=== PATIENT | female | born 1955 | race African-American/Black ===

== ENCOUNTER 2017-02-08 14:54 | Inpatient (IN) | payer MEDICARE, MEDICAID ==
[~2017-02-08] VITALS: Ht 170.2 cm; Wt 118.5 kg
[~2017-02-08 14:54] MED LIST: AMLO5TAB2 PO; ASPI-482 PO; ATOR40TA59 PO; CARV12.52 PO; CLOP75TA PO; FURO-68 PO; IBUP-1060 PO; INSU100C4 SQ; INSU100I13 SQ; INSU100V SQ; INSU100V3 SQ; LISI10TA2 PO; NITR0.4T SL; OXYC-323 PO; POTA10TA5 PO
--- NOTE | 2017-02-08 15:40 | RAD ---
Portable chest, 02/08/2017: History: Hypercalcemia Comparison is made to a study from 08/23/2015. The heart is at the upper limits of normal in size. A coronary artery stent is projected over the left side of the heart. The pulmonary vascularity is normal. No pulmonary infiltrates are seen. There is no evidence of pleural fluid. Moderate spurring is present in the spine. IMPRESSION: No acute cardiopulmonary abnormality is detected.
[2017-02-08 15:44] LABS: BASO # 0.1 x10^3/uL (0.0-0.2); BASO % 1 % (0-3); EOS % 6 % (0-3); HEMATOCRIT 29.2 % (36.0-47.0); HEMOGLOBIN 9.7 g/dL (12.0-15.5); LYMPH % 29 % (24-48); MEAN CORPUSCULAR HEMOGLOBIN 27 pg (25-35); MEAN CORPUSCULAR HGB CONC 33 g/dL (31-37); MEAN CORPUSCULAR VOLUME 81 fL (79-100); MONO % 10 % (0-9); NEUT % 53 % (31-73); PLATELET COUNT 556 x10^3/uL (140-400); RED BLOOD COUNT 3.59 x10^6/uL (3.50-5.40); RED CELL DISTRIBUTION WIDTH 15.5 % (11.5-14.5); WHITE BLOOD COUNT 6.9 x10^3/uL (4.0-11.0)
[2017-02-08] MEDS ORDERED: SODIUM BICARB ADULT 8.4% 50 MEQ/50 ML DISP.SYRIN. IV ONE (15:45)
[2017-02-08] MEDS ORDERED: INSULIN REGULAR 100 UNIT/ML 10ML VIAL. IV ONE (15:45)
[2017-02-08] MEDS ORDERED: DEXTROSE 50% 25 GM / 50ML DISP.SYRIN. IV ONE (15:45)
[2017-02-08] MEDS ORDERED: SODIUM POLYSTYRENE SULFONATE 15 GM/60 ML ORAL.SUSP. PO ONE (15:45)
[2017-02-08] MEDS ORDERED: CALCIUM GLUCONATE 1,000 MG/10 ML VIAL. IV ONE (15:45)
[2017-02-08] MEDS ORDERED: ACETAMINOPHEN 325 MG TABLET. PO PRN ×2 (16:00→16:45)
[2017-02-08] MEDS ORDERED: ONDANSETRON PF 4 MG/2 ML VIAL. IV PRN ×2 (16:00→16:45)
--- NOTE | 2017-02-08 16:00 | PHYS DOC ---
Past Medical History Past Medical History: Diabetes-Type II Past Surgical History: Hysterectomy Alcohol Use: None Drug Use: None Adult General Chief Complaint Chief Complaint: ABNORMAL LABS HPI HPI Patient is a 61 year old female with history significant for diabetes, hypertension, chronic renal insufficiency who presents here today with an incidental finding of hypokalemia that was noted by her primary care physician. Patient reports that she had a potassium level that was elevated to 6.4. Dr. Berumen repeated the potassium level today and was 6.5. I had a discussion with Dr. Berumen upon the patient's arrival and reports that her creatinine during her last blood draw was 2.0 and today her creatinine is 2.3. Reports that her GFR usually runs about 30. Patient is completely a symptomatically otherwise. Patient denies any fevers shakes chills nausea vomiting diarrhea chest pain or shortness of breath. Patient reports she been eating and drinking well. Patient denies any dysuria frequency or urgency. Patient denies any change in her urinary output. Patient denies any new medications. Patient reports she has been constipated other than that no other complaints. Patient reports she is not on any diuretics. Patient's ER physical exam was unremarkable. Patient's heart was regular rate and rhythm. Lungs were clear. Abdomen was soft nontender no rebound or guarding. Patient appears well-hydrated. Review of systems: Constitutional: Denies fever or chills Eyes: Denies change in visual acuity, redness, or eye pain HENT: Denies nasal congestion or sore throat All other review systems are negative except as documented in the history of present illness portion. Physical exam: Constitutional: Well developed, well nourished, no acute distress, non-toxic appearance. HENT: Normocephalic, atraumatic, bilateral external ears normal, oropharynx moist, no oral exudates, nose normal. Eyes: EOMI, conjunctiva normal, no discharge. Neck: Normal range of motion, no tenderness, supple, no stridor. Cardiovascular:Heart rate regular rhythm Lungs & Thorax: No respiratory distress Abdomen: Bowel sounds normal, soft, no masses, no pulsatile masses. Skin: Warm, dry, no erythema, no rash. Back: No tenderness, no CVA tenderness. Extremities: No tenderness, no cyanosis, no clubbing, ROM intact, no edema. Neurologic: Alert and oriented X 3, normal motor function, normal sensory function, no focal deficits noted. Psychologic: Affect normal, judgement normal, mood normal. Patient's i-STAT in the ER revealed potassium 6.6 and a creatinine of 2.6. Patient with a bicarbonate of 18. Patient's anion gap is 10. EKG Normal sinus rhythm with nonspecific ST-T wave abnormalities. No evidence of hyperacute T waves. No evidence of ST elevation NE.. Interpreted by ER physician. Chest x-ray: Normal heart no infiltrates or effusions no pneumonia. No evidence of heart failure. Interpreted by ER physician. Assessment and plan: This is a 59-year-old female with a history significant for diabetes, chronic renal insufficiency, hypertension who presents with hyperkalemia. Patient's potassium 6.6 here in the ER. Patient's EKG is unremarkable. Patient will need to be admitted to the hospital for further evaluation of the cause of her hyperkalemia as well as acute management and treatment of her hyperkalemia. Upon the ER the patient was given an amp of D50, sodium bicarbonate, insulin, and calcium gluconate. Patient was also given a dose of Kayexalate. Patient will be admitted to hospital service and we will consult nephrology. Critical care time of 35 minutes reutilized and treatment and management of this patient's hyperkalemia. Patient has been monitored for arrhythmias. This was exclusive of any procedures. Current Medications Current Medications Current Medications Medications (Trade) Dose Ordered Sig/[facility] Start Time Stop Time Status Last Admin Dose Admin Calcium Gluconate (Calcium Gluconate) 1,000 mg 1X ONCE 02/08/17 15:45 02/08/17 15:46 DC 02/08/17 16:06 1,000 MG Dextrose (Dextrose 50%-Water Syringe) 25 gm 1X ONCE 02/08/17 15:45 02/08/17 15:46 DC 02/08/17 16:03 25 GM Insulin Human Regular (NovoLIN R VIAL) 10 unit 1X ONCE 02/08/17 15:45 02/08/17 15:46 DC 02/08/17 16:05 10 UNIT Sodium Polystyrene Sulfonate (Kayexalate) 15 gm 1X ONCE 02/08/17 15:45 02/08/17 15:46 DC 02/08/17 15:58 15 GM Sodium Bicarbonate 50 meq 1X ONCE 02/08/17 15:45 02/08/17 15:46 DC 02/08/17 16:02 50 MEQ Allergies Allergies Allergies Coded Allergies Type Severity Reaction Last Updated Verified No Known Drug Allergies 07/01/15 No Current Patient Data Vital Signs Vital Signs Date Time Temp Pulse Resp B/P (MAP) Pulse Ox O2 Delivery O2 Flow Rate FiO2 02/08/17 15:45 61 18 123/73 (90) 100 Room Air 02/08/17 15:00 98.0 98.0 Lab Values Laboratory Tests Test 02/08/17 15:20 White Blood Count 6.9 x10^3/uL (4.0-11.0) Red Blood Count 3.59 x10^6/uL (3.50-5.40) Hemoglobin 9.7 g/dL (12.0-15.5) L Hematocrit 29.2 % (36.0-47.0) L Mean Corpuscular Volume 81 fL (79-100) Mean Corpuscular Hemoglobin 27 pg (25-35) Mean Corpuscular Hemoglobin Concent 33 g/dL (31-37) Red Cell Distribution Width 15.5 % (11.5-14.5) H Platelet Count 556 x10^3/uL (140-400) H Neutrophils (%) (Auto) 53 % (31-73) Lymphocytes (%) (Auto) 29 % (24-48) Monocytes (%) (Auto) 10 % (0-9) H Eosinophils (%) (Auto) 6 % (0-3) H Basophils (%) (Auto) 1 % (0-3) Neutrophils # (Auto) 3.7 x10^3uL (1.8-7.7) Lymphocytes # (Auto) 2.0 x10^3/uL (1.0-4.8) Monocytes # (Auto) 0.7 x10^3/uL (0.0-1.1) Eosinophils # (Auto) 0.4 x10^3/uL (0.0-0.7) Basophils # (Auto) 0.1 x10^3/uL (0.0-0.2) Sodium Level 138 mmol/L (136-145) Potassium Level 6.7 mmol/L (3.5-5.1) *H Chloride Level 107 mmol/L (98-107) Carbon Dioxide Level 19 mmol/L (21-32) L Anion Gap 12 (6-14) Blood Urea Nitrogen 52 mg/dL (7-20) H Creatinine 2.6 mg/dL (0.6-1.0) H Estimated GFR (Cockcroft-Gault) 22.6 BUN/Creatinine Ratio 20 (6-20) Glucose Level 147 mg/dL (70-99) H Calcium Level 9.0 mg/dL (8.5-10.1) Total Bilirubin 0.3 mg/dL (0.2-1.0) Aspartate Amino Transferase (AST) 13 U/L (15-37) L Alanine Aminotransferase (ALT) 13 U/L (14-59) L Alkaline Phosphatase 139 U/L (46-116) H Total Protein 8.6 g/dL (6.4-8.2) H Albumin 3.4 g/dL (3.4-5.0) Albumin/Globulin Ratio 0.7 (1.0-1.7) L Laboratory Tests 02/08/17 15:20 Laboratory Tests 02/08/17 15:20 EKG EKG [] Radiology/Procedures Radiology/Procedures [] Course & Med Decision Making Course & Med Decision Making Pertinent Labs and Imaging studies reviewed. (See chart for details) [] Dragon Disclaimer Dragon Disclaimer This electronic medical record was generated, in whole or in part, using a voice recognition dictation system. Departure Departure Impression: Primary Impression: Hyperkalemia Additional Impressions: Hyperkalemia, diminished renal excretion Chronic renal insufficiency Disposition: ADMITTED INPATIENT Admitting Physician: Rufina Cervantes Condition: GUARDED Referrals: TIFFANIE BERUMEN MD (PCP) Problem Qualifiers PABLO MAS MD Feb 08, 2017 16:00
[2017-02-08 16:01] LABS: ALBUMIN 3.4 g/dL (3.4-5.0); ALBUMIN/GLOBULIN RATIO 0.7 (1.0-1.7); CREATININE 2.6 mg/dL (0.6-1.0); GFR 22.6; TOTAL BILIRUBIN 0.3 mg/dL (0.2-1.0); TOTAL PROTEIN 8.6 g/dL (6.4-8.2)
[2017-02-08 16:20] LABS: POTASSIUM 6.7 mmol/L (3.5-5.1)
--- NOTE | 2017-02-08 16:21 | EKG ---
[facility] [address] [place] [address] Test Date: 2017-02-08 Test Time: 15:31:35 Pat Name: ROHAN UREÑA Department: Room: Gender: [employer]: : 1955 Requested By: PABLO MAS Order Number: [id number] Reading MD: Agusitna Gallegos Measurements Intervals [place] Rate: 61 P: 40 MI: 170 QRS: -16 QRSD: 98 T: 24 QT: 430 QTc: 434 Interpretive Statements SINUS RHYTHM LEFTWARD AXIS QRS(T) CONTOUR ABNORMALITY CONSISTENT WITH SEPTAL INFARCT PROBABLY OLD Electronically Signed On 02-10-2017 16:08:22 CDT by Agustina Gallegos
[2017-02-08] MEDS ORDERED: traMADol 50 MG TABLET PO PRN (16:45)
[2017-02-08] MEDS ORDERED: DOCUSATE SODIUM 100 MG CAPSULE. PO PRN (16:45)
[2017-02-08] MEDS ORDERED: DEXTROSE 50% 25 GM / 50ML DISP.SYRIN. IV PRN (16:45)
[2017-02-08] MEDS ORDERED: MORPHINE SULFATE 4 MG/ML DISP.SYRIN. IV PRN (16:45)
[2017-02-08] MEDS ORDERED: oxyCODONE/APAP 5/325 1 TAB TABLET PO PRN (16:45)
[2017-02-08] MEDS ORDERED: hydrALAZINE 20 MG/ML VIAL. IVP PRN (16:45)
--- NOTE | 2017-02-08 16:48 | PDOC1 ---
History and Physical Date of Admission Date of Admission 02/08/17 Identification/Chief Complaint Chief Complaint high K Problems: Source Source: Chart review, Patient History of Present Illness History of Present Illness Patient is a 61 year old female with history significant for diabetes, hypertension, was told to come to ER BY PCP jorje that her K was high. SHe said nobody told her she had ckd. She also doesnot know how much is K in the PCP office. as per ERP, K was 6.4 in PCP office and then repeated was 6.5. as per ERP, her Baseline Cr was 2.0, pt doesnot know. pt said no new meds, feels ok, no N/V,. no fever, chills, cough, sob, chest pain , diarrhea. has chronic constipation. She denies dehydration , said urination ok. She has chronic back pain, for which, she takes ibuprofen 2 pills every 3-4 ds. Past Medical History Cardiovascular: HTN Endocrine: Diabetes Past Surgical History Past Surgical History: Cholecystectomy, Hysterectomy Family History Family History: Hypertension Social History Smoke: No ALCOHOL: none Drugs: None Current Medications Current Medications Current Medications Medications (Trade) Dose Ordered Sig/Zi Start Time Stop Time Status Last Admin Dose Admin Acetaminophen (Tylenol) 650 mg PRN Q4HRS PRN 02/08/17 16:00 02/09/17 15:59 Aspirin (Ecotrin) 81 mg DAILY 02/09/17 09:00 UNV Atorvastatin Calcium (Lipitor) 40 mg DAILY 02/09/17 09:00 UNV Calcium Gluconate (Calcium Gluconate) 1,000 mg 1X ONCE 02/08/17 15:45 02/08/17 15:46 DC 02/08/17 16:06 1,000 MG Carvedilol (Coreg) 12.5 mg BID 02/08/17 21:00 UNV Dextrose (Dextrose 50%-Water Syringe) 25 gm 1X ONCE 02/08/17 15:45 02/08/17 15:46 DC 02/08/17 16:03 25 GM Insulin Human Regular (NovoLIN R VIAL) 10 unit 1X ONCE 02/08/17 15:45 02/08/17 15:46 DC 02/08/17 16:05 10 UNIT Ondansetron HCl (Zofran) 4 mg PRN Q8HRS PRN 02/08/17 16:00 02/09/17 15:59 Oxycodone/ Acetaminophen (Percocet 5/325) 1 tab PRN Q6HRS PRN 02/08/17 16:45 UNV Sodium Polystyrene Sulfonate (Kayexalate) 15 gm 1X ONCE 02/08/17 15:45 02/08/17 15:46 DC 02/08/17 15:58 15 GM Sodium Bicarbonate 50 meq 1X ONCE 02/08/17 15:45 02/08/17 15:46 DC 02/08/17 16:02 50 MEQ Sodium Chloride 1,000 ml @ 125 mls/hr Q8H 02/08/17 15:50 02/09/17 15:49 Allergies Allergies Allergies Coded Allergies Type Severity Reaction Last Updated Verified No Known Drug Allergies 07/01/15 No ROS Review of System CONSTITUTIONAL: No fever or chills EYES: No recent changes SKIN: No rash or itching CARDIOVASCULAR: No chest pain, syncope, palpitations, or edema RESPIRATORY: No SOB or cough GASTROINTESTINAL: No nausea, vomiting or abdominal pain NEUROLOGICAL: No headaches or weakness ENDOCRINE: No cold or heat intolerance GENITOURINARY: No urgency or frequency of urination MUSCULOSKELETAL: No back pain or joint pain LYMPHATICS: No enlarged lymph nodes PSYCHIATRIC: No anxiety or depression Physical Exam Physical Exam GEN.: No apparent distress. Alert and oriented. HEENT: Head is normocephalic, atraumatic NECK: Supple. LUNGS: Clear to auscultation. HEART: RRR, S1, S2 present. Peripheral pulses intact ABDOMEN: Soft, nontender. Positive bowel sounds. EXTREMITIES: Without any cyanosis. NEUROLOGIC: Normal speech, normal tone PSYCHIATRIC: Normal affect, normal mood. SKIN: No ulcerations Vitals Vitals Vital Signs Date Time Temp Pulse Resp B/P (MAP) Pulse Ox O2 Delivery O2 Flow Rate FiO2 02/08/17 15:00 98.0 56 16 121/73 (89) 100 Room Air 98.0 Labs Labs Laboratory Tests Test 02/08/17 15:20 White Blood Count 6.9 x10^3/uL (4.0-11.0) Red Blood Count 3.59 x10^6/uL (3.50-5.40) Hemoglobin 9.7 g/dL (12.0-15.5) Hematocrit 29.2 % (36.0-47.0) Mean Corpuscular Volume 81 fL (79-100) Mean Corpuscular Hemoglobin 27 pg (25-35) Mean Corpuscular Hemoglobin Concent 33 g/dL (31-37) Red Cell Distribution Width 15.5 % (11.5-14.5) Platelet Count 556 x10^3/uL (140-400) Neutrophils (%) (Auto) 53 % (31-73) Lymphocytes (%) (Auto) 29 % (24-48) Monocytes (%) (Auto) 10 % (0-9) Eosinophils (%) (Auto) 6 % (0-3) Basophils (%) (Auto) 1 % (0-3) Neutrophils # (Auto) 3.7 x10^3uL (1.8-7.7) Lymphocytes # (Auto) 2.0 x10^3/uL (1.0-4.8) Monocytes # (Auto) 0.7 x10^3/uL (0.0-1.1) Eosinophils # (Auto) 0.4 x10^3/uL (0.0-0.7) Basophils # (Auto) 0.1 x10^3/uL (0.0-0.2) Sodium Level 138 mmol/L (136-145) Potassium Level 6.7 mmol/L (3.5-5.1) Chloride Level 107 mmol/L (98-107) Carbon Dioxide Level 19 mmol/L (21-32) Anion Gap 12 (6-14) Blood Urea Nitrogen 52 mg/dL (7-20) Creatinine 2.6 mg/dL (0.6-1.0) Estimated GFR (Cockcroft-Gault) 22.6 BUN/Creatinine Ratio 20 (6-20) Glucose Level 147 mg/dL (70-99) Calcium Level 9.0 mg/dL (8.5-10.1) Total Bilirubin 0.3 mg/dL (0.2-1.0) Aspartate Amino Transf (AST/SGOT) 13 U/L (15-37) Alanine Aminotransferase (ALT/SGPT) 13 U/L (14-59) Alkaline Phosphatase 139 U/L (46-116) Total Protein 8.6 g/dL (6.4-8.2) Albumin 3.4 g/dL (3.4-5.0) Albumin/Globulin Ratio 0.7 (1.0-1.7) Laboratory Tests Test 02/08/17 15:20 White Blood Count 6.9 x10^3/uL (4.0-11.0) Red Blood Count 3.59 x10^6/uL (3.50-5.40) Hemoglobin 9.7 g/dL (12.0-15.5) Hematocrit 29.2 % (36.0-47.0) Mean Corpuscular Volume 81 fL (79-100) Mean Corpuscular Hemoglobin 27 pg (25-35) Mean Corpuscular Hemoglobin Concent 33 g/dL (31-37) Red Cell Distribution Width 15.5 % (11.5-14.5) Platelet Count 556 x10^3/uL (140-400) Neutrophils (%) (Auto) 53 % (31-73) Lymphocytes (%) (Auto) 29 % (24-48) Monocytes (%) (Auto) 10 % (0-9) Eosinophils (%) (Auto) 6 % (0-3) Basophils (%) (Auto) 1 % (0-3) Neutrophils # (Auto) 3.7 x10^3uL (1.8-7.7) Lymphocytes # (Auto) 2.0 x10^3/uL (1.0-4.8) Monocytes # (Auto) 0.7 x10^3/uL (0.0-1.1) Eosinophils # (Auto) 0.4 x10^3/uL (0.0-0.7) Basophils # (Auto) 0.1 x10^3/uL (0.0-0.2) Sodium Level 138 mmol/L (136-145) Potassium Level 6.7 mmol/L (3.5-5.1) Chloride Level 107 mmol/L (98-107) Carbon Dioxide Level 19 mmol/L (21-32) Anion Gap 12 (6-14) Blood Urea Nitrogen 52 mg/dL (7-20) Creatinine 2.6 mg/dL (0.6-1.0) Estimated GFR (Cockcroft-Gault) 22.6 BUN/Creatinine Ratio 20 (6-20) Glucose Level 147 mg/dL (70-99) Calcium Level 9.0 mg/dL (8.5-10.1) Total Bilirubin 0.3 mg/dL (0.2-1.0) Aspartate Amino Transf (AST/SGOT) 13 U/L (15-37) Alanine Aminotransferase (ALT/SGPT) 13 U/L (14-59) Alkaline Phosphatase 139 U/L (46-116) Total Protein 8.6 g/dL (6.4-8.2) Albumin 3.4 g/dL (3.4-5.0) Albumin/Globulin Ratio 0.7 (1.0-1.7) VTE Prophylaxis Ordered VTE Prophylaxis Devices: Yes VTE Pharmacological Prophylaxi: Yes Assessment/Plan Assessment/Plan hyperkalemia, 2/2 YUMI possibly YUMI, vasomotor, vs. 2/2 NSAIDS CKD3 HTN DM2 on INSULIN obesity normacytic anemia, chronic plan: renal consult REnal US hold NSADIS decrease coreg to 6.25 bid given low HR levemir 10u qhs, ssi dvt ppx anemia check up labs tmr in ER, bicarb, regular insulin and Ca were given HOSSEIN HARRY MD Feb 08, 2017 16:48
[2017-02-08] MEDS: INSULIN ASPART 300 UNITS/3 ML INSULN.PEN SQ SCH (17:00)
--- NOTE | 2017-02-08 17:29 | RAD ---
Renal ultrasound HISTORY: Acute kidney injury COMPARISON: None FINDINGS: Multiple sonographic images of the kidneys and urinary bladder are submitted. Right kidney measured 9.7 x 4.9 x 4.8 cm. Left kidney measured 9.8 x 4.4 x 3.9 cm. There is no hydronephrosis of either kidney. Estimated urinary bladder volume is 47 cc. Ureteral jets are not demonstrated during exam. IMPRESSION: 1. No significant abnormality is demonstrated. Electronically signed by: Matt Frederick MD (02/08/2017 5:26 PM) [facility]
[2017-02-08] MEDS: IV NORMAL SALINE 1000ML BAG 1,000 ML IV SCH (18:08)
[2017-02-08] MEDS: CARVEDILOL 6.25 MG TABLET. PO SCH (18:15)
[2017-02-08 18:16] VITALS: BP 128/78
[2017-02-08 20:00] VITALS: BP 151/79
[2017-02-08] MEDS ORDERED: CARVEDILOL 12.5 MG TABLET. PO SCH (21:00)
[2017-02-08] MEDS ORDERED: INSULIN DETEMIR 300 UNITS/3 ML INSULN.PEN. SQ SCH (21:00)
[2017-02-08] MEDS: ATORVASTATIN CALCIUM 40 MG TABLET. PO SCH (21:06)
[2017-02-08] MEDS: HEPARIN PF for SUB-Q USE 5,000 UNIT/0.5 ML VIAL. SQ SCH (21:15)
[2017-02-08 23:00] VITALS: BP 174/89
[2017-02-08 23:38] LABS: POTASSIUM ISTAT 6.6 mmol/L (3.5-5.0)
--- NOTE | 2017-02-09 00:26 | ACF ---
Admission Forms Criteria HYPONATREMIA; HYPERNATREMIA; HYPOKALEMIA; HYPERKALEMIA; HYPOCALCEMIA; HYPERCALCEMIA Clinical Indications for Inpatient Care (Place 'X' for any and all applicable criteria): Ongoing inpatient care may be indicated for ANY ONE of the following [G](1)(2)(3 )(5): [ ]I. Hyponatremia with ANY ONE of the following: [ ]a) Sodium less than 130 mEq/L (mmol/L) (new) (6)(22) [ ]b) Sodium less than 135 mEq/L (mmol/L) with ANY ONE of the following: [ ]i) Severe medical etiology requiring inpatient management (eg, heart failure, hypovolemia) [ ]ii) Altered mental status [ ]iii) Seizures [ ]II. Hypernatremia with ANY ONE of the following: [ ]a) Sodium greater than 155 mEq/L (mmol/L) [ ]b) Sodium greater than 150 mEq/L (mmol/L) with ANY ONE of the following: [ ] i) Altered mental status [ ]ii) Seizures [ ]iii) Severe medical etiology (eg, hypovolemia, diabetes insipidus) [ ]iv) Severe weakness [ ]v) Severe medical etiology (eg, hemolysis, infection, drug overdose) [ ]III. Hypokalemia with ANY ONE of the following: [ ]a) Potassium less than 2.5 mEq/L (mmol/L) despite outpatient and emergency treatment [ ]b) Potassium less than 3.0 mEq/L (mmol/L) with ANY ONE of the following: [ ]i) Weakness [ ]ii) Cardiac abnormality (eg, arrhythmia, conduction disturbance) [ ]iii) Cardiac ischemia [ ]iv) Ileus [ ]v) Ongoing medical cause requiring inpatient management. ( e.g., acute renal wasting, SIADH) [ ]vi) Other severe symptoms [X] IV. Hyperkalemia with ANY ONE of the following: [X]a) Potassium greater than 6.5 mEq/L (mmol/L) [ ]b) Potassium greater than 5 mEq/L (mmol/L) with ANY ONE of the following: [ ]i) Severe ECG findings [H] [ ]ii) Acute worsening of renal failure (creatinine greater than 2.5 mg/dL (221 micromoles/L) or significant elevation for age and size) [ ] V. Hypocalcemia with ANY ONE of the following: [ ]a) Calcium less than 7 mg/dL (1.75 mmol/L) despite outpatient and emergency treatment(19) [ ]b) Calcium less than 8 mg/dL (2 mmol/L) with significant symptoms or findings; examples include: [ ]i) Cardiac abnormality (eg, arrhythmia or conduction disturbance) [ ]ii) Altered mental status [ ]iii) Seizures [ ]iv) Breathing difficulty [ ]v) Muscle spasms [ ]. Hypercalcemia with ANY ONE of the following: [ ]a) Calcium greater than 14 mg/dL (3.5 mmol/L) [ ]b) Calcium greater than 12 mg/dL (3 mmol/L) with ANY ONE of the following: [ ]i) Significant dehydration or hypovolemia as indicated by ANY ONE of the following(2): [ ]1. Clinically significant dehydration as indicated by ANY ONE of the following: [ ]A. Acute loss of weight from baseline (5% of body weight in adults, 9% in pediatric patients) [ ]B. Hemodynamic instability [ ]C. Acute renal failure [ ]D. Serum sodium greater than 150 mEq/L (mmol/L) [ ]2) Dehydration that is persistent indicated by ALL of the following: [ ]A. Oral rehydration therapy not tolerated or insufficient to adequately correct dehydration [ ]B. Appropriate intravenous treatment (eg, fluids ) does not readily correct dehydration ie, after 12 to 24 hours of treatment) [ ]ii) Significant symptoms or findings; examples include: [ ]1) Altered mental status [ ]2) Cardiac abnormality (eg, arrhythmia, conduction disturbance) [ ]3) Cardiac abnormality (eg, arrhythmia, conduction disturbance) The original [facility] content created by [facility] has been revised. The portions of the content which have been revised are identified through the use of italic text or in bold, and [facility] has neither reviewed nor approved the modified material. All other unmodified content is copyright [facility] [employer] Please see references footnoted in the original [facility] [employer] edition 2016 Admission Criteria Met?: Yes LALITHA CORNEJO Feb 09, 2017 00:26
[2017-02-09] MEDS: IV NORMAL SALINE 1000ML BAG 1,000 ML IV SCH ×4 (01:57→20:19)
[2017-02-09 03:00] VITALS: BP 158/79
[2017-02-09] MEDS: HEPARIN PF for SUB-Q USE 5,000 UNIT/0.5 ML VIAL. SQ SCH ×3 (05:41→21:37)
[2017-02-09 05:51] LABS: BASO % 1 % (0-3); EOS % 7 % (0-3); HEMATOCRIT 26.8 % (36.0-47.0); HEMOGLOBIN 8.7 g/dL (12.0-15.5); LYMPH # 2.1 x10^3/uL (1.0-4.8); LYMPH % 34 % (24-48); MEAN CORPUSCULAR HEMOGLOBIN 27 pg (25-35); MEAN CORPUSCULAR HGB CONC 32 g/dL (31-37); MEAN CORPUSCULAR VOLUME 82 fL (79-100); MONO % 12 % (0-9); NEUT % 47 % (31-73); PLATELET COUNT 514 x10^3/uL (140-400); RED BLOOD COUNT 3.26 x10^6/uL (3.50-5.40); RED CELL DISTRIBUTION WIDTH 15.6 % (11.5-14.5); WHITE BLOOD COUNT 6.1 x10^3/uL (4.0-11.0)
[2017-02-09 06:17] LABS: CALCIUM 8.4 mg/dL (8.5-10.1); CREATININE 2.5 mg/dL (0.6-1.0); GFR 23.6; POTASSIUM 5.2 mmol/L (3.5-5.1)
[2017-02-09 06:24] LABS: % SAT IRON 17 % (15-34); IRON,SERUM 37 ug/dL (50-170)
[2017-02-09] MEDS: INSULIN ASPART 300 UNITS/3 ML INSULN.PEN SQ SCH ×3 (07:20→17:00)
[2017-02-09] MEDS: ASPIRIN ENTERIC COATED 81 MG TABLET.DR. PO SCH (07:33)
[2017-02-09] MEDS: CARVEDILOL 6.25 MG TABLET. PO SCH ×2 (07:33→16:40)
[2017-02-09 07:59] VITALS: BP 142/75
[2017-02-09 08:50] LABS: FOLATE 7.92 ng/ml (3.2-20.0)
[2017-02-09 11:37] VITALS: BP 130/76
--- NOTE | 2017-02-09 12:21 | PDOC ---
PROGRESS NOTES Chief Complaint Chief Complaint hyperkalemia, 2/2 YUMI possibly YUMI, vasomotor, vs. 2/2 NSAIDS, also DM2 CKD3 HTN DM2 on INSULIN obesity normacytic anemia, chronic plan: renal consult pending REnal US normal hold NSADIS decrease coreg to 6.25 bid given low HR levemir 5u qhs, ssi dvt ppx anemia check up labs tmr in ER, bicarb, regular insulin and Ca were given kayexalate x1 cont IVF labs daily History of Present Illness History of Present Illness feels ok k 5.2 cr still high at 2.5 Vitals Vitals Vital Signs Date Time Temp Pulse Resp B/P (MAP) Pulse Ox O2 Delivery O2 Flow Rate FiO2 02/09/17 11:37 97.5 78 16 130/76 (94) 98 Room Air 97.5 Physical Exam General: Alert, Oriented X3, Cooperative Heart: Regular rate, Normal S1, Normal S2 Lungs: Clear Abdomen: Normal bowel sounds, Soft Extremities: No clubbing, No cyanosis Skin: No rashes Labs LABS Laboratory Tests Test 02/08/17 15:20 02/08/17 15:29 02/08/17 17:57 02/08/17 18:33 White Blood Count 6.9 x10^3/uL (4.0-11.0) Red Blood Count 3.59 x10^6/uL (3.50-5.40) Hemoglobin 9.7 g/dL (12.0-15.5) Hematocrit 29.2 % (36.0-47.0) Mean Corpuscular Volume 81 fL (79-100) Mean Corpuscular Hemoglobin 27 pg (25-35) Mean Corpuscular Hemoglobin Concent 33 g/dL (31-37) Red Cell Distribution Width 15.5 % (11.5-14.5) Platelet Count 556 x10^3/uL (140-400) Neutrophils (%) (Auto) 53 % (31-73) Lymphocytes (%) (Auto) 29 % (24-48) Monocytes (%) (Auto) 10 % (0-9) Eosinophils (%) (Auto) 6 % (0-3) Basophils (%) (Auto) 1 % (0-3) Neutrophils # (Auto) 3.7 x10^3uL (1.8-7.7) Lymphocytes # (Auto) 2.0 x10^3/uL (1.0-4.8) Monocytes # (Auto) 0.7 x10^3/uL (0.0-1.1) Eosinophils # (Auto) 0.4 x10^3/uL (0.0-0.7) Basophils # (Auto) 0.1 x10^3/uL (0.0-0.2) Sodium Level 138 mmol/L (136-145) Potassium Level 6.7 mmol/L (3.5-5.1) Chloride Level 107 mmol/L (98-107) Carbon Dioxide Level 19 mmol/L (21-32) Anion Gap 12 (6-14) 18 mmol/L (6-14) Blood Urea Nitrogen 52 mg/dL (7-20) Creatinine 2.6 mg/dL (0.6-1.0) Estimated GFR (Cockcroft-Gault) 22.6 BUN/Creatinine Ratio 20 (6-20) Glucose Level 147 mg/dL (70-99) 143 mg/dL (70-99) Calcium Level 9.0 mg/dL (8.5-10.1) Total Bilirubin 0.3 mg/dL (0.2-1.0) Aspartate Amino Transf (AST/SGOT) 13 U/L (15-37) Alanine Aminotransferase (ALT/SGPT) 13 U/L (14-59) Alkaline Phosphatase 139 U/L (46-116) Total Protein 8.6 g/dL (6.4-8.2) Albumin 3.4 g/dL (3.4-5.0) Albumin/Globulin Ratio 0.7 (1.0-1.7) Bedside Hemoglobin 10.9 g/dL (12-15) Bedside Hematocrit 32 % (36-40) Bedside Sodium 140 mmol/L (135-145) Bedside Potassium 6.6 mmol/L (3.5-5.0) Bedside Chloride 112 mmol/L (98-110) Bedside Total CO2 18 mmol/L (23-32) Bedside Blood Urea Nitrogen 48 mg/dL (8-26) Bedside Creatinine 2.6 mg/dL (0.5-1.4) Bedside Ionized Calcium (Kate) 1.28 mmol/L (1.13-1.32) Glucose (Fingerstick) 54 mg/dL (70-99) 103 mg/dL (70-99) Test 02/08/17 21:06 02/09/17 05:10 02/09/17 07:12 Glucose (Fingerstick) 164 mg/dL (70-99) 91 mg/dL (70-99) White Blood Count 6.1 x10^3/uL (4.0-11.0) Red Blood Count 3.26 x10^6/uL (3.50-5.40) Hemoglobin 8.7 g/dL (12.0-15.5) Hematocrit 26.8 % (36.0-47.0) Mean Corpuscular Volume 82 fL (79-100) Mean Corpuscular Hemoglobin 27 pg (25-35) Mean Corpuscular Hemoglobin Concent 32 g/dL (31-37) Red Cell Distribution Width 15.6 % (11.5-14.5) Platelet Count 514 x10^3/uL (140-400) Neutrophils (%) (Auto) 47 % (31-73) Lymphocytes (%) (Auto) 34 % (24-48) Monocytes (%) (Auto) 12 % (0-9) Eosinophils (%) (Auto) 7 % (0-3) Basophils (%) (Auto) 1 % (0-3) Neutrophils # (Auto) 2.8 x10^3uL (1.8-7.7) Lymphocytes # (Auto) 2.1 x10^3/uL (1.0-4.8) Monocytes # (Auto) 0.7 x10^3/uL (0.0-1.1) Eosinophils # (Auto) 0.4 x10^3/uL (0.0-0.7) Basophils # (Auto) 0.0 x10^3/uL (0.0-0.2) Sodium Level 143 mmol/L (136-145) Potassium Level 5.2 mmol/L (3.5-5.1) Chloride Level 111 mmol/L (98-107) Carbon Dioxide Level 22 mmol/L (21-32) Anion Gap 10 (6-14) Blood Urea Nitrogen 50 mg/dL (7-20) Creatinine 2.5 mg/dL (0.6-1.0) Estimated GFR (Cockcroft-Gault) 23.6 Glucose Level 62 mg/dL (70-99) Calcium Level 8.4 mg/dL (8.5-10.1) Iron Level 37 ug/dL (50-170) Total Iron Binding Capacity 215 ug/dL (250-450) Iron Saturation 17 % (15-34) Ferritin 33 ng/mL (8-252) Vitamin B12 Level 674 pg/mL (247-911) Serum Folate 7.92 ng/ml (3.2-20.0) Review of Systems Review of Systems no fever, chills, sob or chest pain Assessment and Plan Assessmemt and Plan Problems Medical Problems: (1) Chronic renal insufficiency Status: Acute (2) Hyperkalemia Status: Acute (3) Hyperkalemia, diminished renal excretion Status: Acute Problems: Comment Review of Relevant I have reviewed the following items manuel (where applicable) has been applied. Labs Laboratory Tests Test 02/08/17 15:20 02/08/17 15:29 02/08/17 17:57 02/08/17 18:33 White Blood Count 6.9 x10^3/uL (4.0-11.0) Red Blood Count 3.59 x10^6/uL (3.50-5.40) Hemoglobin 9.7 g/dL (12.0-15.5) Hematocrit 29.2 % (36.0-47.0) Mean Corpuscular Volume 81 fL (79-100) Mean Corpuscular Hemoglobin 27 pg (25-35) Mean Corpuscular Hemoglobin Concent 33 g/dL (31-37) Red Cell Distribution Width 15.5 % (11.5-14.5) Platelet Count 556 x10^3/uL (140-400) Neutrophils (%) (Auto) 53 % (31-73) Lymphocytes (%) (Auto) 29 % (24-48) Monocytes (%) (Auto) 10 % (0-9) Eosinophils (%) (Auto) 6 % (0-3) Basophils (%) (Auto) 1 % (0-3) Neutrophils # (Auto) 3.7 x10^3uL (1.8-7.7) Lymphocytes # (Auto) 2.0 x10^3/uL (1.0-4.8) Monocytes # (Auto) 0.7 x10^3/uL (0.0-1.1) Eosinophils # (Auto) 0.4 x10^3/uL (0.0-0.7) Basophils # (Auto) 0.1 x10^3/uL (0.0-0.2) Sodium Level 138 mmol/L (136-145) Potassium Level 6.7 mmol/L (3.5-5.1) Chloride Level 107 mmol/L (98-107) Carbon Dioxide Level 19 mmol/L (21-32) Anion Gap 12 (6-14) 18 mmol/L (6-14) Blood Urea Nitrogen 52 mg/dL (7-20) Creatinine 2.6 mg/dL (0.6-1.0) Estimated GFR (Cockcroft-Gault) 22.6 BUN/Creatinine Ratio 20 (6-20) Glucose Level 147 mg/dL (70-99) 143 mg/dL (70-99) Calcium Level 9.0 mg/dL (8.5-10.1) Total Bilirubin 0.3 mg/dL (0.2-1.0) Aspartate Amino Transf (AST/SGOT) 13 U/L (15-37) Alanine Aminotransferase (ALT/SGPT) 13 U/L (14-59) Alkaline Phosphatase 139 U/L (46-116) Total Protein 8.6 g/dL (6.4-8.2) Albumin 3.4 g/dL (3.4-5.0) Albumin/Globulin Ratio 0.7 (1.0-1.7) Bedside Hemoglobin 10.9 g/dL (12-15) Bedside Hematocrit 32 % (36-40) Bedside Sodium 140 mmol/L (135-145) Bedside Potassium 6.6 mmol/L (3.5-5.0) Bedside Chloride 112 mmol/L (98-110) Bedside Total CO2 18 mmol/L (23-32) Bedside Blood Urea Nitrogen 48 mg/dL (8-26) Bedside Creatinine 2.6 mg/dL (0.5-1.4) Bedside Ionized Calcium (Kate) 1.28 mmol/L (1.13-1.32) Glucose (Fingerstick) 54 mg/dL (70-99) 103 mg/dL (70-99) Test 02/08/17 21:06 02/09/17 05:10 02/09/17 07:12 Glucose (Fingerstick) 164 mg/dL (70-99) 91 mg/dL (70-99) White Blood Count 6.1 x10^3/uL (4.0-11.0) Red Blood Count 3.26 x10^6/uL (3.50-5.40) Hemoglobin 8.7 g/dL (12.0-15.5) Hematocrit 26.8 % (36.0-47.0) Mean Corpuscular Volume 82 fL (79-100) Mean Corpuscular Hemoglobin 27 pg (25-35) Mean Corpuscular Hemoglobin Concent 32 g/dL (31-37) Red Cell Distribution Width 15.6 % (11.5-14.5) Platelet Count 514 x10^3/uL (140-400) Neutrophils (%) (Auto) 47 % (31-73) Lymphocytes (%) (Auto) 34 % (24-48) Monocytes (%) (Auto) 12 % (0-9) Eosinophils (%) (Auto) 7 % (0-3) Basophils (%) (Auto) 1 % (0-3) Neutrophils # (Auto) 2.8 x10^3uL (1.8-7.7) Lymphocytes # (Auto) 2.1 x10^3/uL (1.0-4.8) Monocytes # (Auto) 0.7 x10^3/uL (0.0-1.1) Eosinophils # (Auto) 0.4 x10^3/uL (0.0-0.7) Basophils # (Auto) 0.0 x10^3/uL (0.0-0.2) Sodium Level 143 mmol/L (136-145) Potassium Level 5.2 mmol/L (3.5-5.1) Chloride Level 111 mmol/L (98-107) Carbon Dioxide Level 22 mmol/L (21-32) Anion Gap 10 (6-14) Blood Urea Nitrogen 50 mg/dL (7-20) Creatinine 2.5 mg/dL (0.6-1.0) Estimated GFR (Cockcroft-Gault) 23.6 Glucose Level 62 mg/dL (70-99) Calcium Level 8.4 mg/dL (8.5-10.1) Iron Level 37 ug/dL (50-170) Total Iron Binding Capacity 215 ug/dL (250-450) Iron Saturation 17 % (15-34) Ferritin 33 ng/mL (8-252) Vitamin B12 Level 674 pg/mL (247-911) Serum Folate 7.92 ng/ml (3.2-20.0) Laboratory Tests Test 02/08/17 15:20 02/08/17 15:29 02/08/17 17:57 02/08/17 18:33 White Blood Count 6.9 x10^3/uL (4.0-11.0) Red Blood Count 3.59 x10^6/uL (3.50-5.40) Hemoglobin 9.7 g/dL (12.0-15.5) Hematocrit 29.2 % (36.0-47.0) Mean Corpuscular Volume 81 fL (79-100) Mean Corpuscular Hemoglobin 27 pg (25-35) Mean Corpuscular Hemoglobin Concent 33 g/dL (31-37) Red Cell Distribution Width 15.5 % (11.5-14.5) Platelet Count 556 x10^3/uL (140-400) Neutrophils (%) (Auto) 53 % (31-73) Lymphocytes (%) (Auto) 29 % (24-48) Monocytes (%) (Auto) 10 % (0-9) Eosinophils (%) (Auto) 6 % (0-3) Basophils (%) (Auto) 1 % (0-3) Neutrophils # (Auto) 3.7 x10^3uL (1.8-7.7) Lymphocytes # (Auto) 2.0 x10^3/uL (1.0-4.8) Monocytes # (Auto) 0.7 x10^3/uL (0.0-1.1) Eosinophils # (Auto) 0.4 x10^3/uL (0.0-0.7) Basophils # (Auto) 0.1 x10^3/uL (0.0-0.2) Sodium Level 138 mmol/L (136-145) Potassium Level 6.7 mmol/L (3.5-5.1) Chloride Level 107 mmol/L (98-107) Carbon Dioxide Level 19 mmol/L (21-32) Anion Gap 12 (6-14) 18 mmol/L (6-14) Blood Urea Nitrogen 52 mg/dL (7-20) Creatinine 2.6 mg/dL (0.6-1.0) Estimated GFR (Cockcroft-Gault) 22.6 BUN/Creatinine Ratio 20 (6-20) Glucose Level 147 mg/dL (70-99) 143 mg/dL (70-99) Calcium Level 9.0 mg/dL (8.5-10.1) Total Bilirubin 0.3 mg/dL (0.2-1.0) Aspartate Amino Transf (AST/SGOT) 13 U/L (15-37) Alanine Aminotransferase (ALT/SGPT) 13 U/L (14-59) Alkaline Phosphatase 139 U/L (46-116) Total Protein 8.6 g/dL (6.4-8.2) Albumin 3.4 g/dL (3.4-5.0) Albumin/Globulin Ratio 0.7 (1.0-1.7) Bedside Hemoglobin 10.9 g/dL (12-15) Bedside Hematocrit 32 % (36-40) Bedside Sodium 140 mmol/L (135-145) Bedside Potassium 6.6 mmol/L (3.5-5.0) Bedside Chloride 112 mmol/L (98-110) Bedside Total CO2 18 mmol/L (23-32) Bedside Blood Urea Nitrogen 48 mg/dL (8-26) Bedside Creatinine 2.6 mg/dL (0.5-1.4) Bedside Ionized Calcium (Kate) 1.28 mmol/L (1.13-1.32) Glucose (Fingerstick) 54 mg/dL (70-99) 103 mg/dL (70-99) Test 02/08/17 21:06 02/09/17 05:10 02/09/17 07:12 Glucose (Fingerstick) 164 mg/dL (70-99) 91 mg/dL (70-99) White Blood Count 6.1 x10^3/uL (4.0-11.0) Red Blood Count 3.26 x10^6/uL (3.50-5.40) Hemoglobin 8.7 g/dL (12.0-15.5) Hematocrit 26.8 % (36.0-47.0) Mean Corpuscular Volume 82 fL (79-100) Mean Corpuscular Hemoglobin 27 pg (25-35) Mean Corpuscular Hemoglobin Concent 32 g/dL (31-37) Red Cell Distribution Width 15.6 % (11.5-14.5) Platelet Count 514 x10^3/uL (140-400) Neutrophils (%) (Auto) 47 % (31-73) Lymphocytes (%) (Auto) 34 % (24-48) Monocytes (%) (Auto) 12 % (0-9) Eosinophils (%) (Auto) 7 % (0-3) Basophils (%) (Auto) 1 % (0-3) Neutrophils # (Auto) 2.8 x10^3uL (1.8-7.7) Lymphocytes # (Auto) 2.1 x10^3/uL (1.0-4.8) Monocytes # (Auto) 0.7 x10^3/uL (0.0-1.1) Eosinophils # (Auto) 0.4 x10^3/uL (0.0-0.7) Basophils # (Auto) 0.0 x10^3/uL (0.0-0.2) Sodium Level 143 mmol/L (136-145) Potassium Level 5.2 mmol/L (3.5-5.1) Chloride Level 111 mmol/L (98-107) Carbon Dioxide Level 22 mmol/L (21-32) Anion Gap 10 (6-14) Blood Urea Nitrogen 50 mg/dL (7-20) Creatinine 2.5 mg/dL (0.6-1.0) Estimated GFR (Cockcroft-Gault) 23.6 Glucose Level 62 mg/dL (70-99) Calcium Level 8.4 mg/dL (8.5-10.1) Iron Level 37 ug/dL (50-170) Total Iron Binding Capacity 215 ug/dL (250-450) Iron Saturation 17 % (15-34) Ferritin 33 ng/mL (8-252) Vitamin B12 Level 674 pg/mL (247-911) Serum Folate 7.92 ng/ml (3.2-20.0) Medications Current Medications Sodium Polystyrene Sulfonate (Kayexalate) 15 gm 1X ONCE PO Last administered on 02/08/17 15:58; Start 02/08/17 at 15:45; Stop 02/08/17 at 15:46; Status DC Calcium Gluconate (Calcium Gluconate) 1,000 mg 1X ONCE IV Last administered on 02/08/17 16:06; Start 02/08/17 at 15:45; Stop 02/08/17 at 15:46; Status DC Dextrose (Dextrose 50%-Water Syringe) 25 gm 1X ONCE IV Last administered on 16:03; Start 02/08/17 at 15:45; Stop 02/08/17 at 15:46; Status DC Sodium Bicarbonate 50 meq 1X ONCE IV Last administered on 02/08/17 16:02; Start 02/08/17 at 15:45; Stop 02/08/17 at 15:46; Status DC Insulin Human Regular (NovoLIN R VIAL) 10 unit 1X ONCE IV Last administered on 02/08/17 16:05; Start 02/08/17 at 15:45; Stop 02/08/17 at 15:46; Status DC Ondansetron HCl (Zofran) 4 mg PRN Q8HRS PRN IV NAUSEA/VOMITING; Start 02/08/17 at 16:00; Stop 02/09/17 at 15:59 Sodium Chloride 1,000 ml @ 125 mls/hr Q8H IV Last administered on 02/09/17 07 :34; Start 02/08/17 at 15:50; Stop 02/09/17 at 15:49 Acetaminophen (Tylenol) 650 mg PRN Q4HRS PRN PO FEVER; Start 02/08/17 at 16:00 ; Stop 02/09/17 at 15:59 Aspirin (Ecotrin) 81 mg DAILY PO Last administered on 02/09/17 07:33; Start at 09:00 Atorvastatin Calcium (Lipitor) 40 mg QHS PO Last administered on 02/08/17 21: 06; Start 02/08/17 at 21:00 Carvedilol (Coreg) 12.5 mg BID PO ; Start 02/08/17 at 21:00; Stop 02/08/17 at 21 :00; Status DC Oxycodone/ Acetaminophen (Percocet 5/325) 1 tab PRN Q6HRS PRN PO PAIN; Start at 16:45 Acetaminophen (Tylenol) 650 mg PRN Q6HRS PRN PO FEVER; Start 02/08/17 at 16:45 Ondansetron HCl (Zofran) 4 mg PRN Q6HRS PRN IV NAUSEA/VOMITING; Start 02/08/17 at 16:45 Morphine Sulfate 2 mg PRN Q2HR PRN IV PAIN; Start 02/08/17 at 16:45 Tramadol HCl (Ultram) 50 mg PRN Q6HRS PRN PO PAIN; Start 02/08/17 at 16:45 Hydralazine HCl (Apresoline) 10 mg PRN Q4HRS PRN IVP ELEVATED BP, SEE COMMENTS ; Start 02/08/17 at 16:45 Docusate Sodium (Colace) 100 mg PRN DAILY PRN PO CONSTIPATION; Start 02/08/17 at 16:45 Heparin Sodium (Porcine) (Heparin Sq) 5,000 unit Q8HRS SQ Last administered on 02/09/17 05:41; Start 02/08/17 at 22:00 Insulin Aspart (NovoLOG) 0-9 UNITS TIDWMEALS SQ ; Start 02/08/17 at 17:00 Dextrose (Dextrose 50%-Water Syringe) 12.5 gm PRN Q15MIN PRN IV SEE COMMENTS; Start 02/08/17 at 16:45 Insulin Detemir (Levemir) 10 units QHS SQ Last administered on 02/08/17 21:16 ; Start 02/08/17 at 21:00 Carvedilol (Coreg) 6.25 mg BIDWMEALS PO Last administered on 02/09/17 07:33; Start 02/08/17 at 17:00 Sodium Chloride 1,000 ml @ 100 mls/hr Q10H IV Last administered on 02/09/17 11:29; Start 02/09/17 at 11:15 Active Scripts Active Percocet 5-325 Mg Tablet (Oxycodone/Acetaminophen) 1 Each Tablet 1-2 Tab PO Q4- 6HRS Reported Lantus Solostar (Insulin Glargine,Hum.rec.anlog) 100 Unit/1 Ml Insuln.pen 5 Unit SQ QHS Carvedilol 12.5 Mg Tablet 12.5 Mg PO BID Aspir 81 (Aspirin) 81 Mg Tablet.dr 81 Mg PO DAILY Vitals/I & O Vital Sign - Last 24 Hours 02/08/17 02/08/17 02/08/17 02/08/17 15:00 15:45 16:45 18:15 Temp 98.0 98.0 Pulse 56 61 72 65 Resp 16 18 18 B/P (MAP) 121/73 (89) 123/73 (90) 141/73 (95) 128/78 Pulse Ox 100 100 100 O2 Delivery Room Air Room Air Room Air 02/08/17 02/08/17 02/08/17 02/08/17 18:16 19:24 20:00 20:00 Temp 97.6 97.2 97.6 97.2 Pulse 65 73 Resp 16 18 B/P (MAP) 128/78 (95) 151/79 (103) Pulse Ox 98 99 O2 Delivery Room Air Room Air Room Air 02/08/17 02/09/17 02/09/17 02/09/17 23:00 03:00 07:33 07:35 Temp 97.8 97.7 97.8 97.7 Pulse 67 75 78 Resp 18 18 B/P (MAP) 174/89 (117) 158/79 (105) 142/75 Pulse Ox 99 99 O2 Delivery Room Air Room Air Room Air 02/09/17 02/09/17 07:59 11:37 Temp 97.7 97.5 97.7 97.5 Pulse 80 78 Resp 18 16 B/P (MAP) 142/75 (97) 130/76 (94) Pulse Ox 98 98 O2 Delivery Room Air Room Air Intake and Output 02/08/17 02/08/17 02/09/17 15:00 23:00 07:00 Intake Total 240 ml Balance 240 ml HOSSEIN HARRY MD Feb 09, 2017 12:21
[2017-02-09] MEDS ORDERED: SODIUM POLYSTYRENE SULFONATE 15 GM/60 ML ORAL.SUSP. PO ONE (13:00)
--- NOTE | 2017-02-09 13:10 | PDOC2 ---
CONSULT Date of Consult Date of Consult DATE: 02/09/17 TIME: 13:09 Reason for Consult Reason for Consult: YUMI/ CKD III and ^K Referring Physician Referring Physician: Dr Hyatt Identification/Chief Complaint Chief Complaint AbN ormal labs Problems: Source Source: Chart review, Patient History of Present Illness Reason for Visit: as dictatted Past Medical History Cardiovascular: HTN Endocrine: Diabetes Past Surgical History Past Surgical History: Cholecystectomy, Hysterectomy Family History Family History: Hypertension Social History No ALCOHOL: none Drugs: None Current Problem List Problem List Problems Medical Problems: (1) Chronic renal insufficiency Status: Acute (2) Hyperkalemia Status: Acute (3) Hyperkalemia, diminished renal excretion Status: Acute Current Medications Current Medications Current Medications Sodium Polystyrene Sulfonate (Kayexalate) 15 gm 1X ONCE PO Last administered on 02/08/17 15:58; Start 02/08/17 at 15:45; Stop 02/08/17 at 15:46; Status DC Calcium Gluconate (Calcium Gluconate) 1,000 mg 1X ONCE IV Last administered on 02/08/17 16:06; Start 02/08/17 at 15:45; Stop 02/08/17 at 15:46; Status DC Dextrose (Dextrose 50%-Water Syringe) 25 gm 1X ONCE IV Last administered on 16:03; Start 02/08/17 at 15:45; Stop 02/08/17 at 15:46; Status DC Sodium Bicarbonate 50 meq 1X ONCE IV Last administered on 02/08/17 16:02; Start 02/08/17 at 15:45; Stop 02/08/17 at 15:46; Status DC Insulin Human Regular (NovoLIN R VIAL) 10 unit 1X ONCE IV Last administered on 02/08/17 16:05; Start 02/08/17 at 15:45; Stop 02/08/17 at 15:46; Status DC Ondansetron HCl (Zofran) 4 mg PRN Q8HRS PRN IV NAUSEA/VOMITING; Start 02/08/17 at 16:00; Stop 02/09/17 at 15:59 Sodium Chloride 1,000 ml @ 125 mls/hr Q8H IV Last administered on 02/09/17 07 :34; Start 02/08/17 at 15:50; Stop 02/09/17 at 15:49 Acetaminophen (Tylenol) 650 mg PRN Q4HRS PRN PO FEVER; Start 02/08/17 at 16:00 ; Stop 02/09/17 at 15:59 Aspirin (Ecotrin) 81 mg DAILY PO Last administered on 02/09/17 07:33; Start at 09:00 Atorvastatin Calcium (Lipitor) 40 mg QHS PO Last administered on 02/08/17 21: 06; Start 02/08/17 at 21:00 Carvedilol (Coreg) 12.5 mg BID PO ; Start 02/08/17 at 21:00; Stop 02/08/17 at 21 :00; Status DC Oxycodone/ Acetaminophen (Percocet 5/325) 1 tab PRN Q6HRS PRN PO PAIN; Start at 16:45 Acetaminophen (Tylenol) 650 mg PRN Q6HRS PRN PO FEVER; Start 02/08/17 at 16:45 Ondansetron HCl (Zofran) 4 mg PRN Q6HRS PRN IV NAUSEA/VOMITING; Start 02/08/17 at 16:45 Morphine Sulfate 2 mg PRN Q2HR PRN IV PAIN; Start 02/08/17 at 16:45 Tramadol HCl (Ultram) 50 mg PRN Q6HRS PRN PO PAIN; Start 02/08/17 at 16:45 Hydralazine HCl (Apresoline) 10 mg PRN Q4HRS PRN IVP ELEVATED BP, SEE COMMENTS ; Start 02/08/17 at 16:45 Docusate Sodium (Colace) 100 mg PRN DAILY PRN PO CONSTIPATION; Start 02/08/17 at 16:45 Heparin Sodium (Porcine) (Heparin Sq) 5,000 unit Q8HRS SQ Last administered on 02/09/17 05:41; Start 02/08/17 at 22:00 Insulin Aspart (NovoLOG) 0-9 UNITS TIDWMEALS SQ ; Start 02/08/17 at 17:00 Dextrose (Dextrose 50%-Water Syringe) 12.5 gm PRN Q15MIN PRN IV SEE COMMENTS; Start 02/08/17 at 16:45 Insulin Detemir (Levemir) 10 units QHS SQ Last administered on 02/08/17 21:16 ; Start 02/08/17 at 21:00; Stop 02/09/17 at 12:21; Status DC Carvedilol (Coreg) 6.25 mg BIDWMEALS PO Last administered on 02/09/17 07:33; Start 02/08/17 at 17:00 Sodium Chloride 1,000 ml @ 100 mls/hr Q10H IV Last administered on 02/09/17 11:29; Start 02/09/17 at 11:15 Insulin Detemir (Levemir) 5 units QHS SQ ; Start 02/09/17 at 21:00 Sodium Polystyrene Sulfonate (Kayexalate) 15 gm 1X ONCE PO ; Start 02/09/17 at 13:00; Stop 02/09/17 at 13:01; Status DC Active Scripts Active Percocet 5-325 Mg Tablet (Oxycodone/Acetaminophen) 1 Each Tablet 1-2 Tab PO Q4- 6HRS Reported Lantus Solostar (Insulin Glargine,Hum.rec.anlog) 100 Unit/1 Ml Insuln.pen 5 Unit SQ QHS Carvedilol 12.5 Mg Tablet 12.5 Mg PO BID Aspir 81 (Aspirin) 81 Mg Tablet.dr 81 Mg PO DAILY Allergies Allergies: Coded Allergies: No Known Drug Allergies (Unverified , 07/01/15) ROS Review of System GEN: no Fevers no Chills EYES: no new Visual Complaints ENT: no EN Drainage no Hearing deficiets CVS: no Orthopnea no CP RESP: no SOB no INTERIANO GI: no Nausea no Vomiting : no Dysuria no Urgency HEME: no easy bruising no Palp Ly Nodes NEURO no Focal Weakness no Sz PSYCH: no Suicidal Ideation no Depression SKIN: no Rashes ENDO: no Polyuria or Polydipsia no Hot/Cold Intolerance MU SK: + Arthraigia occ Myalgia/ crampoing Physical Exam Physical Exam General Appearance: Awake Alert Oriented x 3 In no Distress Eyes: VIsion Unchanged Conjunctiva Normal EN: No EN Drainage Mucous Memb. Neck: no JVD no JVP Supple no Thyromegaly CVS: S1 S2 no Murmur No Gallop No Rub tr Edema Resp: no Rales no Rhonchi no Acc. Muscle use GI: BS +ve NO Bruit Non Tender Non Distended - obese abd : no CVA tenderness; no Suprapubic Tenderness SKIN: no Rashes Breast Exam deferred Mu.Sk: Adequate ROM no Muscle Atrophy Heme: Unable to palpate Obvious LAD no palp Splenomegaly NEURO: Good Strength and Tone Cranial Nerves II - XII grossly intact Psych: ? min Depressed no Active hallucination Vital Signs Vital Signs Date Time Temp Pulse Resp B/P (MAP) Pulse Ox O2 Delivery O2 Flow Rate FiO2 02/09/17 11:37 97.5 78 16 130/76 (94) 98 Room Air 97.5 Assessment & Plan YUMI - suspect NSAID related. Watch trend on IVF - Doubt ATN per se - await UA. Current FLuid and E-lyte status does not necessitate emergent need for Dialysis. Will re-evaluate for Dialysis in am ^edK - susepct NSAID related, Diet (was eating a lot of fresh fruits) and ? Renal insuff; w/up as ordered. Plts are ^ed and mybe contributing to PeudoHyperKalmeia ? CKDIII - longstanding DM (~ 15yrs) and HTN too - cehck UA and 24-hr Urine Anemia: Fe Def - IV Venofer and Epogen as ordered; Transfuse as needed. HTN: Current BP meds reviewed. See orders for changes. Protein Gap - PEPs as ordered Discussed Plan of Care and prognosis etc. at length with family. Labs Labs Laboratory Tests Test 02/08/17 15:20 02/08/17 15:29 02/08/17 17:57 02/08/17 18:33 White Blood Count 6.9 x10^3/uL (4.0-11.0) Red Blood Count 3.59 x10^6/uL (3.50-5.40) Hemoglobin 9.7 g/dL (12.0-15.5) Hematocrit 29.2 % (36.0-47.0) Mean Corpuscular Volume 81 fL (79-100) Mean Corpuscular Hemoglobin 27 pg (25-35) Mean Corpuscular Hemoglobin Concent 33 g/dL (31-37) Red Cell Distribution Width 15.5 % (11.5-14.5) Platelet Count 556 x10^3/uL (140-400) Neutrophils (%) (Auto) 53 % (31-73) Lymphocytes (%) (Auto) 29 % (24-48) Monocytes (%) (Auto) 10 % (0-9) Eosinophils (%) (Auto) 6 % (0-3) Basophils (%) (Auto) 1 % (0-3) Neutrophils # (Auto) 3.7 x10^3uL (1.8-7.7) Lymphocytes # (Auto) 2.0 x10^3/uL (1.0-4.8) Monocytes # (Auto) 0.7 x10^3/uL (0.0-1.1) Eosinophils # (Auto) 0.4 x10^3/uL (0.0-0.7) Basophils # (Auto) 0.1 x10^3/uL (0.0-0.2) Sodium Level 138 mmol/L (136-145) Potassium Level 6.7 mmol/L (3.5-5.1) Chloride Level 107 mmol/L (98-107) Carbon Dioxide Level 19 mmol/L (21-32) Anion Gap 12 (6-14) 18 mmol/L (6-14) Blood Urea Nitrogen 52 mg/dL (7-20) Creatinine 2.6 mg/dL (0.6-1.0) Estimated GFR (Cockcroft-Gault) 22.6 BUN/Creatinine Ratio 20 (6-20) Glucose Level 147 mg/dL (70-99) 143 mg/dL (70-99) Calcium Level 9.0 mg/dL (8.5-10.1) Total Bilirubin 0.3 mg/dL (0.2-1.0) Aspartate Amino Transf (AST/SGOT) 13 U/L (15-37) Alanine Aminotransferase (ALT/SGPT) 13 U/L (14-59) Alkaline Phosphatase 139 U/L (46-116) Total Protein 8.6 g/dL (6.4-8.2) Albumin 3.4 g/dL (3.4-5.0) Albumin/Globulin Ratio 0.7 (1.0-1.7) Bedside Hemoglobin 10.9 g/dL (12-15) Bedside Hematocrit 32 % (36-40) Bedside Sodium 140 mmol/L (135-145) Bedside Potassium 6.6 mmol/L (3.5-5.0) Bedside Chloride 112 mmol/L (98-110) Bedside Total CO2 18 mmol/L (23-32) Bedside Blood Urea Nitrogen 48 mg/dL (8-26) Bedside Creatinine 2.6 mg/dL (0.5-1.4) Bedside Ionized Calcium (Kate) 1.28 mmol/L (1.13-1.32) Glucose (Fingerstick) 54 mg/dL (70-99) 103 mg/dL (70-99) Test 02/08/17 21:06 02/09/17 05:10 02/09/17 07:12 02/09/17 12:20 Glucose (Fingerstick) 164 mg/dL (70-99) 91 mg/dL (70-99) 95 mg/dL (70-99) White Blood Count 6.1 x10^3/uL (4.0-11.0) Red Blood Count 3.26 x10^6/uL (3.50-5.40) Hemoglobin 8.7 g/dL (12.0-15.5) Hematocrit 26.8 % (36.0-47.0) Mean Corpuscular Volume 82 fL (79-100) Mean Corpuscular Hemoglobin 27 pg (25-35) Mean Corpuscular Hemoglobin Concent 32 g/dL (31-37) Red Cell Distribution Width 15.6 % (11.5-14.5) Platelet Count 514 x10^3/uL (140-400) Neutrophils (%) (Auto) 47 % (31-73) Lymphocytes (%) (Auto) 34 % (24-48) Monocytes (%) (Auto) 12 % (0-9) Eosinophils (%) (Auto) 7 % (0-3) Basophils (%) (Auto) 1 % (0-3) Neutrophils # (Auto) 2.8 x10^3uL (1.8-7.7) Lymphocytes # (Auto) 2.1 x10^3/uL (1.0-4.8) Monocytes # (Auto) 0.7 x10^3/uL (0.0-1.1) Eosinophils # (Auto) 0.4 x10^3/uL (0.0-0.7) Basophils # (Auto) 0.0 x10^3/uL (0.0-0.2) Sodium Level 143 mmol/L (136-145) Potassium Level 5.2 mmol/L (3.5-5.1) Chloride Level 111 mmol/L (98-107) Carbon Dioxide Level 22 mmol/L (21-32) Anion Gap 10 (6-14) Blood Urea Nitrogen 50 mg/dL (7-20) Creatinine 2.5 mg/dL (0.6-1.0) Estimated GFR (Cockcroft-Gault) 23.6 Glucose Level 62 mg/dL (70-99) Calcium Level 8.4 mg/dL (8.5-10.1) Iron Level 37 ug/dL (50-170) Total Iron Binding Capacity 215 ug/dL (250-450) Iron Saturation 17 % (15-34) Ferritin 33 ng/mL (8-252) Vitamin B12 Level 674 pg/mL (247-911) Serum Folate 7.92 ng/ml (3.2-20.0) Laboratory Tests Test 02/08/17 15:20 02/08/17 15:29 02/08/17 17:57 02/08/17 18:33 White Blood Count 6.9 x10^3/uL (4.0-11.0) Red Blood Count 3.59 x10^6/uL (3.50-5.40) Hemoglobin 9.7 g/dL (12.0-15.5) Hematocrit 29.2 % (36.0-47.0) Mean Corpuscular Volume 81 fL (79-100) Mean Corpuscular Hemoglobin 27 pg (25-35) Mean Corpuscular Hemoglobin Concent 33 g/dL (31-37) Red Cell Distribution Width 15.5 % (11.5-14.5) Platelet Count 556 x10^3/uL (140-400) Neutrophils (%) (Auto) 53 % (31-73) Lymphocytes (%) (Auto) 29 % (24-48) Monocytes (%) (Auto) 10 % (0-9) Eosinophils (%) (Auto) 6 % (0-3) Basophils (%) (Auto) 1 % (0-3) Neutrophils # (Auto) 3.7 x10^3uL (1.8-7.7) Lymphocytes # (Auto) 2.0 x10^3/uL (1.0-4.8) Monocytes # (Auto) 0.7 x10^3/uL (0.0-1.1) Eosinophils # (Auto) 0.4 x10^3/uL (0.0-0.7) Basophils # (Auto) 0.1 x10^3/uL (0.0-0.2) Sodium Level 138 mmol/L (136-145) Potassium Level 6.7 mmol/L (3.5-5.1) Chloride Level 107 mmol/L (98-107) Carbon Dioxide Level 19 mmol/L (21-32) Anion Gap 12 (6-14) 18 mmol/L (6-14) Blood Urea Nitrogen 52 mg/dL (7-20) Creatinine 2.6 mg/dL (0.6-1.0) Estimated GFR (Cockcroft-Gault) 22.6 BUN/Creatinine Ratio 20 (6-20) Glucose Level 147 mg/dL (70-99) 143 mg/dL (70-99) Calcium Level 9.0 mg/dL (8.5-10.1) Total Bilirubin 0.3 mg/dL (0.2-1.0) Aspartate Amino Transf (AST/SGOT) 13 U/L (15-37) Alanine Aminotransferase (ALT/SGPT) 13 U/L (14-59) Alkaline Phosphatase 139 U/L (46-116) Total Protein 8.6 g/dL (6.4-8.2) Albumin 3.4 g/dL (3.4-5.0) Albumin/Globulin Ratio 0.7 (1.0-1.7) Bedside Hemoglobin 10.9 g/dL (12-15) Bedside Hematocrit 32 % (36-40) Bedside Sodium 140 mmol/L (135-145) Bedside Potassium 6.6 mmol/L (3.5-5.0) Bedside Chloride 112 mmol/L (98-110) Bedside Total CO2 18 mmol/L (23-32) Bedside Blood Urea Nitrogen 48 mg/dL (8-26) Bedside Creatinine 2.6 mg/dL (0.5-1.4) Bedside Ionized Calcium (Kate) 1.28 mmol/L (1.13-1.32) Glucose (Fingerstick) 54 mg/dL (70-99) 103 mg/dL (70-99) Test 02/08/17 21:06 02/09/17 05:10 02/09/17 07:12 02/09/17 12:20 Glucose (Fingerstick) 164 mg/dL (70-99) 91 mg/dL (70-99) 95 mg/dL (70-99) White Blood Count 6.1 x10^3/uL (4.0-11.0) Red Blood Count 3.26 x10^6/uL (3.50-5.40) Hemoglobin 8.7 g/dL (12.0-15.5) Hematocrit 26.8 % (36.0-47.0) Mean Corpuscular Volume 82 fL (79-100) Mean Corpuscular Hemoglobin 27 pg (25-35) Mean Corpuscular Hemoglobin Concent 32 g/dL (31-37) Red Cell Distribution Width 15.6 % (11.5-14.5) Platelet Count 514 x10^3/uL (140-400) Neutrophils (%) (Auto) 47 % (31-73) Lymphocytes (%) (Auto) 34 % (24-48) Monocytes (%) (Auto) 12 % (0-9) Eosinophils (%) (Auto) 7 % (0-3) Basophils (%) (Auto) 1 % (0-3) Neutrophils # (Auto) 2.8 x10^3uL (1.8-7.7) Lymphocytes # (Auto) 2.1 x10^3/uL (1.0-4.8) Monocytes # (Auto) 0.7 x10^3/uL (0.0-1.1) Eosinophils # (Auto) 0.4 x10^3/uL (0.0-0.7) Basophils # (Auto) 0.0 x10^3/uL (0.0-0.2) Sodium Level 143 mmol/L (136-145) Potassium Level 5.2 mmol/L (3.5-5.1) Chloride Level 111 mmol/L (98-107) Carbon Dioxide Level 22 mmol/L (21-32) Anion Gap 10 (6-14) Blood Urea Nitrogen 50 mg/dL (7-20) Creatinine 2.5 mg/dL (0.6-1.0) Estimated GFR (Cockcroft-Gault) 23.6 Glucose Level 62 mg/dL (70-99) Calcium Level 8.4 mg/dL (8.5-10.1) Iron Level 37 ug/dL (50-170) Total Iron Binding Capacity 215 ug/dL (250-450) Iron Saturation 17 % (15-34) Ferritin 33 ng/mL (8-252) Vitamin B12 Level 674 pg/mL (247-911) Serum Folate 7.92 ng/ml (3.2-20.0) Images Images FINDINGS: Multiple sonographic images of the kidneys and urinary bladder are submitted. Right kidney measured 9.7 x 4.9 x 4.8 cm. Left kidney measured 9.8 x 4.4 x 3.9 cm. There is no hydronephrosis of either kidney. Estimated urinary bladder volume is 47 cc. Ureteral jets are not demonstrated during exam. IMPRESSION: 1. No significant abnormality is demonstrated. HUONG BARRON MD Feb 09, 2017 13:10
[2017-02-09] MEDS ORDERED: MAGNESIUM SULFATE 2GM 50 ML IV PRN (13:15)
[2017-02-09] MEDS: IRON SUCROSE COMPLEX 200 MG in IV NORMAL SALINE 100ML 100 ML IV SCH (14:05)
[2017-02-09 14:36] LABS: URIC ACID 5.9 mg/dL (2.6-6.0)
[2017-02-09 15:07] VITALS: BP 149/78
[2017-02-09 16:00] LABS: BILIRUBIN,URINE NEGATIVE (NEG); GLUCOSE,URINE NEGATIVE (NEG); NITRITE,URINE NEGATIVE (NEG); PH,URINE 6.5; PROTEIN,URINE 100 mg/dL (NEG-TRACE); UROBILINOGEN,URINE 0.2 mg/dL (0.2 mg/dL)
[2017-02-09 16:06] LABS: BACTERIA,URINE FEW /HPF (0-FEW); RBC,URINE 0 /HPF (0-2); SQUAMOUS EPITHELIAL CELL,UR FEW /LPF
[2017-02-09 16:29] LABS: BACTERIA,URINE 0 /HPF (0-FEW); BILIRUBIN,URINE NEGATIVE (NEG); GLUCOSE,URINE NEGATIVE (NEG); NITRITE,URINE NEGATIVE (NEG); PH,URINE 6.5; PROTEIN,URINE 100 mg/dL (NEG-TRACE); RBC,URINE RARE /HPF (0-2); SQUAMOUS EPITHELIAL CELL,UR FEW /LPF; UROBILINOGEN,URINE 0.2 mg/dL (0.2 mg/dL); WBC,URINE OCC /HPF (0-4)
--- NOTE | 2017-02-09 17:34 | CONS ---
DATE OF CONSULTATION: PRIMARY PHYSICIAN: Dr. Cervantes. REASON FOR CONSULTATION: Acute renal failure and hyperkalemia. HISTORY OF PRESENT ILLNESS: The patient is a 61-year-old -[place] female who was sent to the ER by Dr. Hyatt after 2 consecutive lab tests in his office had shown elevated potassium. This has been gleaned from the ER notes and Dr. Cervantes's H and P. The patient is not aware of any of this at this time. The patient is known to have a creatinine of 2.0-2.3 recently. She was also noted to have elevated potassium. It is felt that her GFR usually runs about 30 mL per minute. She was sent to the ER. She was asymptomatic and her GFR was down to 22.6. Potassium was 6.7 on presentation, she received temporizing measures and potassium is now down to 5.2 and she is getting more Kayexalate. Creatinine is down to 2.5. About a week ago, she had started ibuprofen. It is also noted that patient's platelets are running in the 500s currently, baseline is not available. She has not had labs in our system in the past. For rest of details, see electronic records. HUONG BARRON MD DR: MARIAN/azeb JOB#: [id number] / [id number]
[2017-02-09 19:30] VITALS: BP 150/74
[2017-02-09] MEDS: ATORVASTATIN CALCIUM 40 MG TABLET. PO SCH (20:19)
[2017-02-09] MEDS ORDERED: DARBEPOETIN ALFA 60 MCG/0.3 ML DISP.SYRIN. SQ SCH (21:00)
[2017-02-09] MEDS: INSULIN DETEMIR 300 UNITS/3 ML INSULN.PEN. SQ SCH (22:17)
[2017-02-09 23:52] VITALS: BP 150/76
[2017-02-10 02:14] LABS: UR PROTEIN RD 62.4 mg/dL (Not Estab.)
[2017-02-10 03:49] VITALS: BP 144/74
[2017-02-10 04:34] LABS: BASO # 0.1 x10^3/uL (0.0-0.2); BASO % 1 % (0-3); EOS % 8 % (0-3); HEMATOCRIT 25.2 % (36.0-47.0); HEMOGLOBIN 8.1 g/dL (12.0-15.5); LYMPH # 2.1 x10^3/uL (1.0-4.8); LYMPH % 38 % (24-48); MEAN CORPUSCULAR HEMOGLOBIN 27 pg (25-35); MEAN CORPUSCULAR HGB CONC 32 g/dL (31-37); MEAN CORPUSCULAR VOLUME 84 fL (79-100); MONO % 12 % (0-9); NEUT % 41 % (31-73); PLATELET COUNT 448 x10^3/uL (140-400); RED BLOOD COUNT 3.01 x10^6/uL (3.50-5.40); RED CELL DISTRIBUTION WIDTH 15.6 % (11.5-14.5); WHITE BLOOD COUNT 5.6 x10^3/uL (4.0-11.0)
[2017-02-10 04:54] LABS: CALCIUM 7.7 mg/dL (8.5-10.1); CREATININE 2.2 mg/dL (0.6-1.0); GFR 27.4; POTASSIUM 5.1 mmol/L (3.5-5.1)
[2017-02-10 05:00] LABS: ALBUMIN 2.6 g/dL (3.4-5.0); CREATININE 2.2 mg/dL (0.6-1.0); GFR 27.4; PHOSPHORUS 4.4 mg/dL (2.6-4.7); POTASSIUM 4.9 mmol/L (3.5-5.1)
[2017-02-10] MEDS: IV NORMAL SALINE 1000ML BAG 1,000 ML IV SCH ×2 (05:39→20:56)
[2017-02-10] MEDS: HEPARIN PF for SUB-Q USE 5,000 UNIT/0.5 ML VIAL. SQ SCH ×3 (05:41→20:55)
[2017-02-10 07:15] VITALS: BP 149/78
[2017-02-10] MEDS: INSULIN ASPART 300 UNITS/3 ML INSULN.PEN SQ SCH ×3 (07:45→17:00)
[2017-02-10] MEDS: ASPIRIN ENTERIC COATED 81 MG TABLET.DR. PO SCH (08:21)
[2017-02-10] MEDS: CARVEDILOL 6.25 MG TABLET. PO SCH ×2 (08:22→17:42)
[2017-02-10 10:49] VITALS: BP 145/74
--- NOTE | 2017-02-10 12:28 | PDOC ---
SUBJECTIVE ROS CKD IV doign and feeling better today - she never CVS: no Orthopnea, no CP RESP: no SOB, no INTERIANO GI: no Nausea, no Vomiting : no Dysuria, no Urgency OBJECTIVE Vital Signs Vital Signs Date Time Temp Pulse Resp B/P (MAP) Pulse Ox O2 Delivery O2 Flow Rate FiO2 02/10/17 10:49 98.0 80 18 145/74 (97) 96 Room Air 98.0 I & 0 Intake and Output 02/10/17 07:00 Intake Total 3358 ml Output Total 1300 ml Balance 2058 ml Intake Oral 1390 ml IV Total 1968 ml Output Urine Total 1300 ml PHYSICAL EXAM Physical Exam General Appearance: Awake Alert Oriented x 3 In no Distress Eyes: VIsion Unchanged Conjunctiva Normal EN: No EN Drainage Mucous Memb. Neck: no JVD no JVP Supple no Thyromegaly CVS: S1 S2 no Murmur No Gallop No Rub tr Edema Resp: no Rales no Rhonchi no Acc. Muscle use GI: BS +ve NO Bruit Non Tender Non Distended - obese abd : no CVA tenderness; no Suprapubic Tenderness Assessment & Plan YUMI - suspect NSAID related. no significant regional climate change analyst last 24-hrs despite IVF - Doubt ATN per se - UA is clear. Current FLuid and E-lyte status does not necessitate emergent need for Dialysis. Will re-evaluate for Dialysis in am ^edK - susepct NSAID related, Diet (was eating a lot of fresh fruits) and ? Renal insuff; w/up as ordered. Plts are ^ed (trending down) and maybe contributing to PeudoHyperKalmeia ? CKDIII / IV- longstanding DM (~ 15yrs) and HTN too - await 24-hr Urine Low Mag - Mag replacement as ordered Anemia: Fe Def - IV Venofer and Epogen as ordered; Transfuse as needed. HTN: Current BP meds reviewed. See orders for changes. Protein Gap - PEPs as ordered Discussed Plan of Care and prognosis etc. at length with pt. COMMENT/RELEVANT DATA Meds Current Medications Medications (Trade) Dose Ordered Sig/Zi Start Time Stop Time Status Last Admin Dose Admin Acetaminophen (Tylenol) 650 mg PRN Q6HRS PRN 02/08/17 16:45 Aspirin (Ecotrin) 81 mg DAILY 02/09/17 09:00 02/10/17 08:21 81 MG Atorvastatin Calcium (Lipitor) 40 mg QHS 02/08/17 21:00 02/09/17 20:19 40 MG Calcium Gluconate (Calcium Gluconate) 1,000 mg 1X ONCE 02/08/17 15:45 02/08/17 15:46 DC 02/08/17 16:06 1,000 MG Carvedilol (Coreg) 6.25 mg BIDWMEALS 02/08/17 17:00 02/10/17 08:22 6.25 MG Darbepoetin Sanjay (Aranesp) 60 mcg WEEKLYHS 02/09/17 21:00 02/09/17 20:23 60 MCG Dextrose (Dextrose 50%-Water Syringe) 12.5 gm PRN Q15MIN PRN 02/08/17 16:45 Docusate Sodium (Colace) 100 mg PRN DAILY PRN 02/08/17 16:45 Heparin Sodium (Porcine) (Heparin Sq) 5,000 unit Q8HRS 02/08/17 22:00 02/10/17 05:41 5,000 UNIT Hydralazine HCl (Apresoline) 10 mg PRN Q4HRS PRN 02/08/17 16:45 Insulin Aspart (NovoLOG) 0-9 UNITS TIDWMEALS 02/08/17 17:00 Insulin Detemir (Levemir) 5 units QHS 02/09/17 21:00 02/09/17 22:17 5 UNITS Insulin Human Regular (NovoLIN R VIAL) 10 unit 1X ONCE 02/08/17 15:45 02/08/17 15:46 DC 02/08/17 16:05 10 UNIT Iron Sucrose 200 mg/Sodium Chloride 110 ml @ 55 mls/hr 3X/WEEK 02/09/17 15:00 02/19/17 10:59 02/09/17 14:05 55 MLS/HR Magnesium Sulfate/ Dextrose 50 ml @ 25 mls/hr PRN DAILY PRN 02/09/17 13:15 02/10/17 07:22 25 MLS/HR Morphine Sulfate 2 mg PRN Q2HR PRN 02/08/17 16:45 02/09/17 21:34 2 MG Ondansetron HCl (Zofran) 4 mg PRN Q6HRS PRN 02/08/17 16:45 Oxycodone/ Acetaminophen (Percocet 5/325) 1 tab PRN Q6HRS PRN 02/08/17 16:45 Sodium Polystyrene Sulfonate (Kayexalate) 15 gm 1X ONCE 02/09/17 13:00 02/09/17 13:01 DC 02/09/17 13:09 15 GM Sodium Bicarbonate 50 meq 1X ONCE 02/08/17 15:45 02/08/17 15:46 DC 02/08/17 16:02 50 MEQ Sodium Chloride 1,000 ml @ 100 mls/hr Q10H 02/09/17 11:15 02/10/17 05:39 100 MLS/HR Tramadol HCl (Ultram) 50 mg PRN Q6HRS PRN 02/08/17 16:45 Lab Laboratory Tests Test 02/09/17 13:50 02/09/17 16:15 02/09/17 16:47 02/09/17 21:10 Potassium Level 5.8 mmol/L (3.5-5.1) Uric Acid 5.9 mg/dL (2.6-6.0) Lactate Dehydrogenase 148 U/L (81-234) Creatine Kinase 50 U/L (26-192) Lipase 49 U/L (73-393) Thyroid Stimulating Hormone (TSH) 2.288 uIU/mL (0.358-3.74) Urine Collection Type Unknown Urine Color Yellow Urine Clarity Clear Urine pH 6.5 Urine Specific [place] 1.015 Urine Protein 62.4 mg/dL (Not Estab.) Urine Glucose (UA) Negative mg/dL (NEG) Urine Ketones (Stick) 15 mg/dL (NEG) Urine Blood Negative (NEG) Urine Nitrite Negative (NEG) Urine Bilirubin Negative (NEG) Urine Urobilinogen Dipstick 0.2 mg/dL (0.2 mg/dL) Urine Leukocyte Esterase Negative (NEG) Urine RBC Rare /HPF (0-2) Urine WBC Occ /HPF (0-4) Urine Squamous Epithelial Cells Few /LPF Urine Bacteria 0 /HPF (0-FEW) Urine Random Creatinine 67.6 mg/dL (Not Estab.) Urine Random Sodium 114 mmol/L (Not Estab.) Urine Creatinine 66.5 mg/dL (Not Estab.) Urine Protein/Creatinine Ratio 938 mg/g creat (0-200) Glucose (Fingerstick) 128 mg/dL (70-99) 148 mg/dL (70-99) Test 02/10/17 04:10 02/10/17 07:15 02/10/17 11:28 White Blood Count 5.6 x10^3/uL (4.0-11.0) Red Blood Count 3.01 x10^6/uL (3.50-5.40) Hemoglobin 8.1 g/dL (12.0-15.5) Hematocrit 25.2 % (36.0-47.0) Mean Corpuscular Volume 84 fL (79-100) Mean Corpuscular Hemoglobin 27 pg (25-35) Mean Corpuscular Hemoglobin Concent 32 g/dL (31-37) Red Cell Distribution Width 15.6 % (11.5-14.5) Platelet Count 448 x10^3/uL (140-400) Neutrophils (%) (Auto) 41 % (31-73) Lymphocytes (%) (Auto) 38 % (24-48) Monocytes (%) (Auto) 12 % (0-9) Eosinophils (%) (Auto) 8 % (0-3) Basophils (%) (Auto) 1 % (0-3) Neutrophils # (Auto) 2.3 x10^3uL (1.8-7.7) Lymphocytes # (Auto) 2.1 x10^3/uL (1.0-4.8) Monocytes # (Auto) 0.7 x10^3/uL (0.0-1.1) Eosinophils # (Auto) 0.5 x10^3/uL (0.0-0.7) Basophils # (Auto) 0.1 x10^3/uL (0.0-0.2) Sodium Level 144 mmol/L (136-145) Potassium Level 4.9 mmol/L (3.5-5.1) Chloride Level 113 mmol/L (98-107) Carbon Dioxide Level 22 mmol/L (21-32) Anion Gap 9 (6-14) Blood Urea Nitrogen 38 mg/dL (7-20) Creatinine 2.2 mg/dL (0.6-1.0) Estimated GFR (Cockcroft-Gault) 27.4 Glucose Level 82 mg/dL (70-99) Calcium Level 8.0 mg/dL (8.5-10.1) Phosphorus Level 4.4 mg/dL (2.6-4.7) Magnesium Level 1.5 mg/dL (1.8-2.4) Albumin 2.6 g/dL (3.4-5.0) Glucose (Fingerstick) 80 mg/dL (70-99) 83 mg/dL (70-99) HUONG BARRON MD Feb 10, 2017 12:28
[2017-02-10] MEDS ORDERED: IRON SUCROSE COMPLEX 200 MG in IV NORMAL SALINE 100ML 100 ML IV SCH (13:00)
[2017-02-10 14:48] VITALS: BP 152/73
--- NOTE | 2017-02-10 17:54 | PDOC ---
PROGRESS NOTES Chief Complaint Chief Complaint Hyperkalemia YUMI ASSESSMENT AND PLAN: 1. hyperkalemia: 2/2 YUMI possibly. resolved. monitor 2. YUMI on CKD 3: poss 2/2 NSAIDs; poss chronic worsening of CKD. stable. appreciate Dr Gilbert's input 3. DM2: on insulin 4. HTN: borderline control. start lisinopril 5. Anemia: normocytic. chronic inflammation and renal insufficiency. on IV iron, EPO 6. Bradycardia: resolved with decreasing BB 7. Morbid obesity (BMI 43): nutrition consult History of Present Illness History of Present Illness feels ok, was worried about her worsening renal fxn. Vitals Vitals Vital Signs Date Time Temp Pulse Resp B/P (MAP) Pulse Ox O2 Delivery O2 Flow Rate FiO2 02/10/17 14:48 98.0 74 18 152/73 (99) 97 Room Air 98.0 Physical Exam General: Alert, Oriented X3, Cooperative Heart: Regular rate Lungs: Clear Abdomen: Normal bowel sounds, Soft, No tenderness Extremities: No clubbing, No cyanosis Skin: No rashes Labs LABS Laboratory Tests Test 02/09/17 21:10 02/10/17 04:10 02/10/17 07:15 02/10/17 11:28 Glucose (Fingerstick) 148 mg/dL (70-99) 80 mg/dL (70-99) 83 mg/dL (70-99) White Blood Count 5.6 x10^3/uL (4.0-11.0) Red Blood Count 3.01 x10^6/uL (3.50-5.40) Hemoglobin 8.1 g/dL (12.0-15.5) Hematocrit 25.2 % (36.0-47.0) Mean Corpuscular Volume 84 fL (79-100) Mean Corpuscular Hemoglobin 27 pg (25-35) Mean Corpuscular Hemoglobin Concent 32 g/dL (31-37) Red Cell Distribution Width 15.6 % (11.5-14.5) Platelet Count 448 x10^3/uL (140-400) Neutrophils (%) (Auto) 41 % (31-73) Lymphocytes (%) (Auto) 38 % (24-48) Monocytes (%) (Auto) 12 % (0-9) Eosinophils (%) (Auto) 8 % (0-3) Basophils (%) (Auto) 1 % (0-3) Neutrophils # (Auto) 2.3 x10^3uL (1.8-7.7) Lymphocytes # (Auto) 2.1 x10^3/uL (1.0-4.8) Monocytes # (Auto) 0.7 x10^3/uL (0.0-1.1) Eosinophils # (Auto) 0.5 x10^3/uL (0.0-0.7) Basophils # (Auto) 0.1 x10^3/uL (0.0-0.2) Sodium Level 144 mmol/L (136-145) Potassium Level 4.9 mmol/L (3.5-5.1) Chloride Level 113 mmol/L (98-107) Carbon Dioxide Level 22 mmol/L (21-32) Anion Gap 9 (6-14) Blood Urea Nitrogen 38 mg/dL (7-20) Creatinine 2.2 mg/dL (0.6-1.0) Estimated GFR (Cockcroft-Gault) 27.4 Glucose Level 82 mg/dL (70-99) Calcium Level 8.0 mg/dL (8.5-10.1) Phosphorus Level 4.4 mg/dL (2.6-4.7) Magnesium Level 1.5 mg/dL (1.8-2.4) Albumin 2.6 g/dL (3.4-5.0) Test 02/10/17 17:06 Glucose (Fingerstick) 149 mg/dL (70-99) RAFIA CROUCH MD Feb 10, 2017 17:54
[2017-02-10 19:00] VITALS: BP 132/74
[2017-02-10] MEDS: ATORVASTATIN CALCIUM 40 MG TABLET. PO SCH (20:54)
[2017-02-10] MEDS: INSULIN DETEMIR 300 UNITS/3 ML INSULN.PEN. SQ SCH (21:10)
[2017-02-10 23:00] VITALS: BP 130/91
[2017-02-11 02:47] VITALS: BP 160/78
[2017-02-11] MEDS: HEPARIN PF for SUB-Q USE 5,000 UNIT/0.5 ML VIAL. SQ SCH ×3 (06:17→20:56)
[2017-02-11 06:26] LABS: ALBUMIN 2.6 g/dL (3.4-5.0); CALCIUM 8.6 mg/dL (8.5-10.1); GFR 30.5; PHOSPHORUS 3.9 mg/dL (2.6-4.7); POTASSIUM 4.7 mmol/L (3.5-5.1)
[2017-02-11 07:00] VITALS: BP 178/98
[2017-02-11] MEDS: INSULIN ASPART 300 UNITS/3 ML INSULN.PEN SQ SCH ×3 (07:57→17:00)
[2017-02-11] MEDS: ASPIRIN ENTERIC COATED 81 MG TABLET.DR. PO SCH (08:33)
[2017-02-11] MEDS: IV NORMAL SALINE 1000ML BAG 1,000 ML IV SCH (08:33)
[2017-02-11] MEDS: CARVEDILOL 6.25 MG TABLET. PO SCH ×2 (08:33→17:23)
--- NOTE | 2017-02-11 08:55 | PDOC ---
SUBJECTIVE ROS YUMI vs CKD III Doing and feeling same overall CVS: no Orthopnea, no CP RESP: no SOB, no INTERIANO GI: no Nausea, no Vomiting : no Dysuria, no Urgency OBJECTIVE Vital Signs Vital Signs Date Time Temp Pulse Resp B/P (MAP) Pulse Ox O2 Delivery O2 Flow Rate FiO2 02/11/17 08:33 124 178/98 02/11/17 07:00 96.4 19 98 Room Air 96.4 I & 0 Intake and Output 02/11/17 07:00 Intake Total 940 ml Output Total 600 ml Balance 340 ml Intake Oral 940 ml Output Urine Total 600 ml # Voids 1 PHYSICAL EXAM Physical Exam General Appearance: Awake Alert Oriented x 3 In no Distress Eyes: VIsion Unchanged Conjunctiva Normal EN: No EN Drainage Mucous Memb. Neck: no JVD no JVP Supple no Thyromegaly CVS: S1 S2 no Murmur No Gallop No Rub tr Edema Resp: no Rales no Rhonchi no Acc. Muscle use GI: BS +ve NO Bruit Non Tender Non Distended - obese abd : no CVA tenderness; no Suprapubic Tenderness Assessment & Plan YUMI - suspect NSAID related. Creat is a little better today - Doubt ATN per se - UA is clear. Current FLuid and E-lyte status does not necessitate emergent need for Dialysis. Will re-evaluate for Dialysis in am ^edK - resolved; RD has seen and educated. NSAIDs may have contributed too Proteinruia - ^ed ESEQUIEL-i - watch K ? CKDIII / IV- longstanding DM (~ 15yrs) and HTN too - await 24-hr Urine Anemia: Fe Def - IV Venofer and Epogen as ordered; Transfuse as needed. HTN: Current BP meds reviewed. See orders for changes. Protein Gap - PEPs as ordered Discussed Plan of Care and prognosis etc. at length with pt. COMMENT/RELEVANT DATA Meds Current Medications Medications (Trade) Dose Ordered Sig/Zi Start Time Stop Time Status Last Admin Dose Admin Acetaminophen (Tylenol) 650 mg PRN Q6HRS PRN 02/08/17 16:45 Aspirin (Ecotrin) 81 mg DAILY 02/09/17 09:00 02/11/17 08:33 81 MG Atorvastatin Calcium (Lipitor) 40 mg QHS 02/08/17 21:00 02/10/17 20:54 40 MG Calcium Gluconate (Calcium Gluconate) 1,000 mg 1X ONCE 02/08/17 15:45 02/08/17 15:46 DC 02/08/17 16:06 1,000 MG Carvedilol (Coreg) 6.25 mg BIDWMEALS 02/08/17 17:00 02/11/17 08:33 6.25 MG Darbepoetin Sanjay (Aranesp) 60 mcg WEEKLYHS 02/09/17 21:00 02/09/17 20:23 60 MCG Dextrose (Dextrose 50%-Water Syringe) 12.5 gm PRN Q15MIN PRN 02/08/17 16:45 Docusate Sodium (Colace) 100 mg PRN DAILY PRN 02/08/17 16:45 Heparin Sodium (Porcine) (Heparin Sq) 5,000 unit Q8HRS 02/08/17 22:00 02/11/17 06:17 5,000 UNIT Hydralazine HCl (Apresoline) 10 mg PRN Q4HRS PRN 02/08/17 16:45 Insulin Aspart (NovoLOG) 0-9 UNITS TIDWMEALS 02/08/17 17:00 Insulin Detemir (Levemir) 5 units QHS 02/09/17 21:00 02/10/17 21:10 5 UNITS Insulin Human Regular (NovoLIN R VIAL) 10 unit 1X ONCE 02/08/17 15:45 02/08/17 15:46 DC 02/08/17 16:05 10 UNIT Iron Sucrose 200 mg/Sodium Chloride 110 ml @ 55 mls/hr 3X/WEEK 02/10/17 13:00 02/19/17 10:59 UNV Lisinopril (Prinivil) 5 mg DAILY 02/11/17 09:00 02/11/17 08:33 5 MG Magnesium Sulfate/ Dextrose 50 ml @ 25 mls/hr PRN DAILY PRN 02/09/17 13:15 02/10/17 07:22 25 MLS/HR Morphine Sulfate 2 mg PRN Q2HR PRN 02/08/17 16:45 02/10/17 17:49 DC 02/09/17 21:34 2 MG Ondansetron HCl (Zofran) 4 mg PRN Q6HRS PRN 02/08/17 16:45 Oxycodone/ Acetaminophen (Percocet 5/325) 1 tab PRN Q6HRS PRN 02/08/17 16:45 Sodium Polystyrene Sulfonate (Kayexalate) 15 gm 1X ONCE 02/09/17 13:00 02/09/17 13:01 DC 02/09/17 13:09 15 GM Sodium Bicarbonate 50 meq 1X ONCE 02/08/17 15:45 02/08/17 15:46 DC 02/08/17 16:02 50 MEQ Sodium Chloride 1,000 ml @ 100 mls/hr Q10H 02/09/17 11:15 02/11/17 08:33 100 MLS/HR Tramadol HCl (Ultram) 50 mg PRN Q6HRS PRN 02/08/17 16:45 Lab Laboratory Tests Test 02/10/17 11:28 02/10/17 17:06 02/10/17 21:02 02/11/17 05:15 Glucose (Fingerstick) 83 mg/dL (70-99) 149 mg/dL (70-99) 119 mg/dL (70-99) Sodium Level 144 mmol/L (136-145) Potassium Level 4.7 mmol/L (3.5-5.1) Chloride Level 113 mmol/L (98-107) Carbon Dioxide Level 21 mmol/L (21-32) Anion Gap 10 (6-14) Blood Urea Nitrogen 33 mg/dL (7-20) Creatinine 2.0 mg/dL (0.6-1.0) Estimated GFR (Cockcroft-Gault) 30.5 Glucose Level 92 mg/dL (70-99) Calcium Level 8.6 mg/dL (8.5-10.1) Phosphorus Level 3.9 mg/dL (2.6-4.7) Magnesium Level 1.9 mg/dL (1.8-2.4) Albumin 2.6 g/dL (3.4-5.0) Test 02/11/17 07:51 Glucose (Fingerstick) 93 mg/dL (70-99) HUONG BARRON MD Feb 11, 2017 08:55
[2017-02-11] MEDS ORDERED: LISINOPRIL 5 MG TABLET. PO ONE (09:00)
[2017-02-11] MEDS ORDERED: LISINOPRIL 5 MG TABLET. PO SCH (09:00)
--- NOTE | 2017-02-11 09:18 | PDOC ---
PROGRESS NOTES Chief Complaint Chief Complaint Hyperkalemia YUMI ASSESSMENT AND PLAN: 1. hyperkalemia: 2/2 YUMI possibly. resolved. monitor 2. YUMI on CKD 3: poss 2/2 NSAIDs; poss chronic worsening of CKD. creat sl improved 3. DM2: well controlled on insulin regimen 4. Bradycardia: resolved with decreased BB, now tachycardic. return to home dose coreg 5. HTN: worsening. start lisinopril, increase coreg 6. Anemia: normocytic. chronic inflammation and renal insufficiency. on IV iron, EPO 7. Morbid obesity (BMI 43): nutrition consult 8. Prophylaxis; heparin SQ History of Present Illness History of Present Illness no c/o. Vitals Vitals Vital Signs Date Time Temp Pulse Resp B/P (MAP) Pulse Ox O2 Delivery O2 Flow Rate FiO2 02/11/17 08:33 124 178/98 02/11/17 07:00 96.4 19 98 Room Air 96.4 Physical Exam General: Alert, Oriented X3, Cooperative Heart: Regular rate Lungs: Clear Abdomen: Normal bowel sounds, Soft, No tenderness Extremities: No clubbing, No cyanosis Skin: No rashes Labs LABS Laboratory Tests Test 02/10/17 11:28 02/10/17 17:06 02/10/17 21:02 02/11/17 05:15 Glucose (Fingerstick) 83 mg/dL (70-99) 149 mg/dL (70-99) 119 mg/dL (70-99) Sodium Level 144 mmol/L (136-145) Potassium Level 4.7 mmol/L (3.5-5.1) Chloride Level 113 mmol/L (98-107) Carbon Dioxide Level 21 mmol/L (21-32) Anion Gap 10 (6-14) Blood Urea Nitrogen 33 mg/dL (7-20) Creatinine 2.0 mg/dL (0.6-1.0) Estimated GFR (Cockcroft-Gault) 30.5 Glucose Level 92 mg/dL (70-99) Calcium Level 8.6 mg/dL (8.5-10.1) Phosphorus Level 3.9 mg/dL (2.6-4.7) Magnesium Level 1.9 mg/dL (1.8-2.4) Albumin 2.6 g/dL (3.4-5.0) Test 02/11/17 07:51 Glucose (Fingerstick) 93 mg/dL (70-99) RAFIA CROUCH MD Feb 11, 2017 09:18
[2017-02-11] MEDS ORDERED: CARVEDILOL 6.25 MG TABLET. PO ONE (10:00)
[2017-02-11 11:04] VITALS: BP 166/90
[2017-02-11 15:00] VITALS: BP 163/82
[2017-02-11 19:00] VITALS: BP 163/86
[2017-02-11] MEDS: ATORVASTATIN CALCIUM 40 MG TABLET. PO SCH (20:44)
[2017-02-11] MEDS: INSULIN DETEMIR 300 UNITS/3 ML INSULN.PEN. SQ SCH (20:47)
[2017-02-11 23:00] VITALS: BP 155/85
[2017-02-12 02:52] VITALS: BP 144/76
[2017-02-12 06:12] LABS: ALBUMIN 2.6 g/dL (3.4-5.0); CALCIUM 8.6 mg/dL (8.5-10.1); CREATININE 2.1 mg/dL (0.6-1.0); GFR 28.9; PHOSPHORUS 3.3 mg/dL (2.6-4.7); POTASSIUM 4.9 mmol/L (3.5-5.1)
[2017-02-12] MEDS: HEPARIN PF for SUB-Q USE 5,000 UNIT/0.5 ML VIAL. SQ SCH ×2 (06:31→12:30)
[2017-02-12 07:25] VITALS: BP 154/87
[2017-02-12] MEDS: INSULIN ASPART 300 UNITS/3 ML INSULN.PEN SQ SCH ×2 (07:53→11:49)
[2017-02-12] MEDS: ASPIRIN ENTERIC COATED 81 MG TABLET.DR. PO SCH (07:56)
[2017-02-12] MEDS: CARVEDILOL 6.25 MG TABLET. PO SCH (07:56)
[2017-02-12] MEDS ORDERED: LISINOPRIL 20 MG TABLET PO SCH (09:00)
[2017-02-12] MEDS: IRON SUCROSE COMPLEX 200 MG in IV NORMAL SALINE 100ML 100 ML IV SCH (09:44)
[2017-02-12 11:03] VITALS: BP 147/79
--- NOTE | 2017-02-12 11:50 | PDOC ---
Renal-Progress Notes Subjective Notes Notes FEELS WELL History of Present Illness Hx of present illness STABLE Vitals Vitals Vital Signs Date Time Temp Pulse Resp B/P (MAP) Pulse Ox O2 Delivery O2 Flow Rate FiO2 02/12/17 11:03 97.9 74 18 147/79 (101) 99 Room Air 97.9 Weight Weight [ ] I.O. Intake and Output Intake and Output 02/12/17 07:00 Intake Total 4030 ml Output Total 600 ml Balance 3430 ml Intake Oral 1920 ml IV Total 1055 ml Other 1055 ml Output Urine Total 600 ml # Voids 2 Labs Labs Laboratory Tests Test 02/11/17 11:54 02/11/17 16:41 02/11/17 20:27 02/12/17 04:55 Glucose (Fingerstick) 117 mg/dL (70-99) 129 mg/dL (70-99) 179 mg/dL (70-99) Sodium Level 141 mmol/L (136-145) Potassium Level 4.9 mmol/L (3.5-5.1) Chloride Level 110 mmol/L (98-107) Carbon Dioxide Level 20 mmol/L (21-32) Anion Gap 11 (6-14) Blood Urea Nitrogen 31 mg/dL (7-20) Creatinine 2.1 mg/dL (0.6-1.0) Estimated GFR (Cockcroft-Gault) 28.9 Glucose Level 106 mg/dL (70-99) Calcium Level 8.6 mg/dL (8.5-10.1) Phosphorus Level 3.3 mg/dL (2.6-4.7) Magnesium Level 1.7 mg/dL (1.8-2.4) Albumin 2.6 g/dL (3.4-5.0) Test 02/12/17 07:39 Glucose (Fingerstick) 115 mg/dL (70-99) Review of Systems Constitutional: yes: weakness, alert, oriented Eyes: Yes: no symptom reported Genitourinary: Yes: no symptom reported Skin: Yes no symptom reported Psychiatric/Neurological: Yes: no symptom reported Endocrine: Yes: no symptom reported Hematologic/Lymphatic: Yes: no symptom reported Assessment Assessment IMP DM II HTN CKD STAGE 3 YUMI-RESOLVED HYPERKALEMIA-RESOLVED PROTEINURIA PLAN CHANGE ESEQUIEL-I TO ARB OK TO D/C FROM RENAL STANDPOINT WILL NEED TO FOLLOW UP WITH RENAL IN ABOUT A MONTH ASHLEY STALLINGS MD Feb 12, 2017 11:50
[2017-02-12 13:16] LABS: KAPPA LAMBDA RATIO 1.42 (0.26-1.65)
[2017-02-13 07:29] LABS: ALPHA 1 0.2 g/dL (0.0-0.4); ALPHA 2 0.7 g/dL (0.4-1.0); BETA 0.9 g/dL (0.7-1.3); GAMMA 2.2 g/dL (0.4-1.8); M-SPIKE 0.2 g/dL (Not Observed); PROTEIN TOTAL 7.4 g/dL (6.0-8.5)
[2017-02-13] MEDS ORDERED: LOSARTAN POTASSIUM 50 MG TABLET. PO SCH (09:00)
[2017-02-13 12:17] LABS: IMMUNOGLOBULIN A 387 mg/dL (87-352); IMMUNOGLOBULIN G 2142 mg/dL (700-1600); IMMUNOGLOBULIN M 97 mg/dL (26-217)
[2017-02-14 04:19] LABS: GAMMA UR 15.9 % (.); M-SPIKE, % Not Observed % (Not Observed)
== END 2017-02-12 13:10 | disposition home or self-care (01) | DRG 683 ==
LOC: ER 14:54 → 6 SOUTH 15:49
PROVIDERS: ADMIT Internal Medicine; ATTEND Internal Medicine
DX: N17.0 Acute kidney failure with tubular necrosis (principal); Z68.41 Body mass index [BMI] 40.0-44.9, adult; E11.22 Type 2 diabetes mellitus with diabetic chronic kidney disease; E87.5 Hyperkalemia; N18.4 Chronic kidney disease, stage 4 (severe); D64.9 Anemia, unspecified; E66.01 Morbid (severe) obesity due to excess calories; I12.9 Hypertensive chronic kidney disease with stage 1 through stage 4 chronic kidney disease, or unspecified chronic kidney disease; R00.0 Tachycardia, unspecified; R00.1 Bradycardia, unspecified; T39.395A Adverse effect of other nonsteroidal anti-inflammatory drugs [NSAID], initial encounter; Y92.89 Other specified places as the place of occurrence of the external cause; Z79.4 Long term (current) use of insulin; Z82.49 Family history of ischemic heart disease and other diseases of the circulatory system; Z90.710 Acquired absence of both cervix and uterus; Z90.49 Acquired absence of other specified parts of digestive tract
CPT/HCPCS: 36415; 71010; 76770; 80047; 80048; 80053; 80069; 81001; 82550; 82570; 82607; 82728; 82746; 82962; 83520; 83540; 83550; 83615; 83690; 83735; 84132; 84156; 84165; 84166; 84300; 84443; 84550; 85025; 86334; 93005; 96374; 96375; J0610; J0881; J1756; J1815; J2270; J7030; J7042; J7060; 99285-25

== ENCOUNTER → 2017-10-15 | Outpatient (CLI) | payer MEDICARE, MEDICAID | END | disposition home or self-care (01) | LOC: MAMMO 10:49 | DX: Z12.31 Encounter for screening mammogram for malignant neoplasm of breast (principal); I12.9 Hypertensive chronic kidney disease with stage 1 through stage 4 chronic kidney disease, or unspecified chronic kidney disease; E11.22 Type 2 diabetes mellitus with diabetic chronic kidney disease; N18.4 Chronic kidney disease, stage 4 (severe) | CPT/HCPCS: 77063; 77067 ==

== ENCOUNTER → 2017-11-15 | Outpatient (CLI) | payer MEDICARE, MEDICAID | END | disposition home or self-care (01) | LOC: ECHO 09:04 | DX: I27.20 Pulmonary hypertension, unspecified (principal); R06.09 Other forms of dyspnea | CPT/HCPCS: 93306 ==

== ENCOUNTER 2019-08-09 11:25 | Emergency (ER) | payer MEDICARE, MEDICAID ==
[~2019-08-09] VITALS: Ht 170.2 cm; Wt 122.7 kg
[~2019-08-09 11:25] MED LIST changes: +AMLO5TAB10 PO; -AMLO5TAB2 PO; +CARV12.511 PO; -CARV12.52 PO; -INSU100V SQ; +INSU100V6 SQ; -NITR0.4T SL; +NITR0.4T24 SL; -OXYC-323 PO; +OXYC1TAB15 PO; +POTA10TA12 PO; -POTA10TA5 PO
[2019-08-09 12:27] LABS: BASO # 0.1 x10^3/uL (0.0-0.2); BASO % 1 % (0-3); EOS # 0.4 x10^3/uL (0.0-0.7); EOS % 7 % (0-3); HEMATOCRIT 31.5 % (36.0-47.0); HEMOGLOBIN 10.2 g/dL (12.0-15.5); LYMPH # 1.5 x10^3/uL (1.0-4.8); LYMPH % 25 % (24-48); MEAN CORPUSCULAR HEMOGLOBIN 27 pg (25-35); MEAN CORPUSCULAR HGB CONC 33 g/dL (31-37); MEAN CORPUSCULAR VOLUME 82 fL (79-100); MONO # 0.6 x10^3/uL (0.0-1.1); MONO % 10 % (0-9); NEUT # 3.2 x10^3/uL (1.8-7.7); NEUT % 56 % (31-73); PLATELET COUNT 526 x10^3/uL (140-400); RED BLOOD COUNT 3.85 x10^6/uL (3.50-5.40); RED CELL DISTRIBUTION WIDTH 16.4 % (11.5-14.5); WHITE BLOOD COUNT 5.8 x10^3/uL (4.0-11.0)
[2019-08-09 12:33] LABS: CALCIUM 10.4 mg/dL (8.5-10.1); CREATININE 2.8 mg/dL (0.6-1.0); GFR 20.5; POTASSIUM 5.5 mmol/L (3.5-5.1)
[2019-08-09 12:38] LABS: ALBUMIN 3.5 g/dL (3.4-5.0); ALBUMIN/GLOBULIN RATIO 0.8 (1.0-1.7); TOTAL BILIRUBIN 0.2 mg/dL (0.2-1.0); TOTAL PROTEIN 8.1 g/dL (6.4-8.2)
[2019-08-09] MEDS ORDERED: SODI15OR6 PO (13:13)
[2019-08-09 13:19] VITALS: BP 164/82
[2019-08-09] MEDS ORDERED: SODIUM POLYSTYRENE SULFON/SORB 15 GM/60 ML ORAL.SUSP PO ONE (13:30)
--- NOTE | 2019-08-09 14:12 | RAD ---
Chest AP portable at 12:25 PM: Reason for examination: Chest pain. Comparison is made to previous study dated 02/08/2017. The heart size is borderline enlarged but unchanged. Mediastinum is unremarkable. Lung lee are clear. No acute bony abnormalities are seen. Impression: No acute cardiopulmonary disease. Electronically signed by: Subha Pineda MD (08/09/2019 2:10 PM) [id number]
--- NOTE | 2019-08-09 14:19 | PHYS DOC ---
Past Medical History Past Medical History: Diabetes-Type II Past Surgical History: Hysterectomy Smoking Status: Never Smoker Alcohol Use: None Drug Use: None Adult General Chief Complaint Chief Complaint: ABNORMAL LABS HPI HPI Patient is a 64 year old female referred in by the nephrology office for elevated potassium. She was just called by the clinic application security engineer I do not have access to the actual potassium number patient states she feels fine. Over the last week or so she has had 2 or 3 seconds at a time of intermittent sharp chest pain on the right not currently and not recently no shortness of breath she currently feels fine she says she would not have come in if not for the elevated potassium call that she received earlier today see med list. Review of Systems Review of Systems Constitutional: Denies fever or chills [] Eyes: Denies change in visual acuity, redness, or eye pain [] HENT: Denies nasal congestion or sore throat [] Musculoskeletal: Denies back pain or joint pain [] Integument: Denies rash or skin lesions [] Neurologic: Denies headache, focal weakness or sensory changes [] Endocrine: Denies polyuria or polydipsia [] All other systems were reviewed and found to be within normal limits, except as documented in this note. Current Medications Current Medications Current Medications Medications (Trade) Dose Ordered Sig/Zi Start Time Stop Time Status Last Admin Dose Admin Sodium Polystyrene Sulfonate (Kayexalate) 15 gm 1X ONCE 08/09/19 13:30 08/09/19 13:31 DC 08/09/19 13:23 15 GM Allergies Allergies Allergies Coded Allergies Type Severity Reaction Last Updated Verified No Known Drug Allergies 07/01/15 No Physical Exam Physical Exam Constitutional: Well developed, well nourished, no acute distress, non-toxic appearance. [] HENT: Normocephalic, atraumatic, bilateral external ears normal, oropharynx moist, no oral exudates, nose normal. [] Eyes: PERRLA, EOMI, conjunctiva normal, no discharge. [] Neck: Normal range of motion, no tenderness, supple, no stridor. [] Cardiovascular:Heart rate regular rhythm, no murmur [] Lungs & Thorax: Bilateral breath sounds clear to auscultation [] Abdomen: Bowel sounds normal, soft, no tenderness, no masses, no pulsatile masses. [] Skin: Warm, dry, no erythema, no rash. [] Back: No tenderness, no CVA tenderness. [] Extremities: No tenderness, no cyanosis, no clubbing, ROM intact, no edema. [] Neurologic: Alert and oriented X 3, normal motor function, normal sensory function, no focal deficits noted. [] Psychologic: Affect normal, judgement normal, mood normal. [] Current Patient Data Vital Signs Vital Signs Date Time Temp Pulse Resp B/P (MAP) Pulse Ox O2 Delivery O2 Flow Rate FiO2 08/09/19 13:19 60 22 164/82 (109) 96 Room Air 08/09/19 11:50 98.2 98.2 Lab Values Laboratory Tests Test 08/09/19 11:59 White Blood Count 5.8 x10^3/uL (4.0-11.0) Red Blood Count 3.85 x10^6/uL (3.50-5.40) Hemoglobin 10.2 g/dL (12.0-15.5) L Hematocrit 31.5 % (36.0-47.0) L Mean Corpuscular Volume 82 fL (79-100) Mean Corpuscular Hemoglobin 27 pg (25-35) Mean Corpuscular Hemoglobin Concent 33 g/dL (31-37) Red Cell Distribution Width 16.4 % (11.5-14.5) H Platelet Count 526 x10^3/uL (140-400) H Neutrophils (%) (Auto) 56 % (31-73) Lymphocytes (%) (Auto) 25 % (24-48) Monocytes (%) (Auto) 10 % (0-9) H Eosinophils (%) (Auto) 7 % (0-3) H Basophils (%) (Auto) 1 % (0-3) Neutrophils # (Auto) 3.2 x10^3/uL (1.8-7.7) Lymphocytes # (Auto) 1.5 x10^3/uL (1.0-4.8) Monocytes # (Auto) 0.6 x10^3/uL (0.0-1.1) Eosinophils # (Auto) 0.4 x10^3/uL (0.0-0.7) Basophils # (Auto) 0.1 x10^3/uL (0.0-0.2) Sodium Level 140 mmol/L (136-145) Potassium Level 5.5 mmol/L (3.5-5.1) H Chloride Level 107 mmol/L (98-107) Carbon Dioxide Level 23 mmol/L (21-32) Anion Gap 10 (6-14) Blood Urea Nitrogen 45 mg/dL (7-20) H Creatinine 2.8 mg/dL (0.6-1.0) H Estimated GFR (Cockcroft-Gault) 20.5 BUN/Creatinine Ratio 16 (6-20) Glucose Level 94 mg/dL (70-99) Calcium Level 10.4 mg/dL (8.5-10.1) H Total Bilirubin 0.2 mg/dL (0.2-1.0) Aspartate Amino Transferase (AST) 13 U/L (15-37) L Alanine Aminotransferase (ALT) 12 U/L (14-59) L Alkaline Phosphatase 105 U/L (46-116) Troponin I Quantitative < 0.017 ng/mL (0.000-0.055) Total Protein 8.1 g/dL (6.4-8.2) Albumin 3.5 g/dL (3.4-5.0) Albumin/Globulin Ratio 0.8 (1.0-1.7) L Laboratory Tests 08/09/19 11:59 Laboratory Tests 08/09/19 11:59 EKG EKG []EKG shows a normal sinus rhythm T waves are not peaked QT interval is normal right bundle branch block pattern QRS is only 94 no STEMI Radiology/Procedures Radiology/Procedures [] Impressions: Comparison is made to previous study dated 02/08/2017. The heart size is borderline enlarged but unchanged. Mediastinum is unremarkable. Lung lee are clear. No acute bony abnormalities are seen. Impression: No acute cardiopulmonary disease. Electronically signed by: Subha Cai MD (08/09/2019 2:10 PM) [id number] DICTATED and SIGNED BY: SUBHA CAI MD DATE: 08/09/19 1410 Course & Med Decision Making Course & Med Decision Making Pertinent Labs and Imaging studies reviewed. (See chart for details) []Reviewed the lab work and the potassium level with Dr. stern over the telephone states for the past 5.5 okay to go home given his excellent in the emergency room and also another one-time dose at home trying to follow-up on Sunday patient is comfortable prefers this plan Dragon Disclaimer Brain Disclaimer This electronic medical record was generated, in whole or in part, using a voice recognition dictation system. Departure Departure Impression: Primary Impression: Hyperkalemia Disposition: HOME, SELF-CARE Condition: STABLE Patient Instructions: Hyperkalemia, Plaq-vo-Fekf Scripts Sodium Polystyrene Sulfonate (SPS) 15 Gm/60 Ml Oral.susp 60 ML PO ONCE for 1 Day, #60 ML 0 Refills take one dose orally before bed [facility] 08/09/19 Prov: LOUIS DANG MD 08/09/19 LOUIS DANG MD Aug 09, 2019 14:19
--- NOTE | 2019-08-09 23:36 | EKG ---
[facility] [address] [place] [address] Test Date: 2019-08-09 Test Time: 11:53:24 Pat Name: ROHAN UREÑA Department: Room: Gender: F Manufacturing Assistant: : [id number] Requested By: LOUIS DANG Order Number: [id number] Reading MD: Measurements Intervals [place] Rate: 59 P: 40 MN: 176 QRS: -23 QRSD: 94 T: -21 QT: 404 QTc: 404 Interpretive Statements SINUS RHYTHM LEFTWARD AXIS QRS(T) CONTOUR ABNORMALITY CONSIDER ANTEROLATERAL MYOCARDIAL DAMAGE POSSIBLY ABNORMAL ECG RI6.01 No previous ECG available for comparison
== END 2019-08-09 13:50 | disposition home or self-care (01) ==
LOC: ER 11:25
DX: E87.5 Hyperkalemia (principal); E11.9 Type 2 diabetes mellitus without complications; Z90.710 Acquired absence of both cervix and uterus
CPT/HCPCS: 36415; 71045; 80053; 84484; 85025; 93005; 99281; 99285

== ENCOUNTER 2020-01-14 09:38 | Day surgery (SDC) | payer MEDICARE, MEDICAID ==
[~2020-01-14] VITALS: Ht 170.2 cm; Wt 128.8 kg
[~2020-01-14 09:38] MED LIST changes: +ACET325T9 PO; +AMLO10TA8 PO; +ATOR40TA PO; +BAKING SODA PO; +CALC30CA PO; +CARV25TA2 PO; +CLOP75TA57 PO; +DOCU100T11 PO; +HEPARIN SODIUM 5,000 UNIT in IV NORMAL SALINE 500ML BAG 500 ML IRR ONE; +HYDROmorphone 2 MG/ML VIAL IV PRN; +IV RINGERS,LACTATED 1000ML 1,000 ML IV SCH; +LIDOCAINE 1% PF 2 ML VIAL. ID PRN; +MORPHINE SULFATE 2 MG/ML VIAL. IV PRN; +ONDANSETRON PF 4 MG/2 ML VIAL. IV PRN; +PROCHLORPERAZINE 10 MG/2 ML VIAL. IV PRN; +SODI15OR6 PO; +fentaNYL PF VIAL 100 MCG/2 ML VIAL IV PRN
[2020-01-14] MEDS ORDERED: fentaNYL PF VIAL 100 MCG/2 ML VIAL ONE (10:10)
[2020-01-14] MEDS ORDERED: LIDOCAINE 2% PF 5 ML VIAL. ONE (10:10)
[2020-01-14] MEDS ORDERED: PROPOFOL 10 MG/ML (20ML) VIAL. IV ONE (10:10)
[2020-01-14 10:23] LABS: BASO % 1 % (0-3); EOS # 0.4 x10^3/uL (0.0-0.7); EOS % 9 % (0-3); HEMOGLOBIN 10.6 g/dL (12.0-15.5); LYMPH # 1.3 x10^3/uL (1.0-4.8); LYMPH % 29 % (24-48); MEAN CORPUSCULAR HEMOGLOBIN 27 pg (25-35); MEAN CORPUSCULAR HGB CONC 33 g/dL (31-37); MEAN CORPUSCULAR VOLUME 82 fL (79-100); MONO # 0.5 x10^3/uL (0.0-1.1); MONO % 11 % (0-9); NEUT # 2.2 x10^3/uL (1.8-7.7); NEUT % 50 % (31-73); PLATELET COUNT 470 x10^3/uL (140-400); RED BLOOD COUNT 3.93 x10^6/uL (3.50-5.40); RED CELL DISTRIBUTION WIDTH 15.8 % (11.5-14.5); WHITE BLOOD COUNT 4.4 x10^3/uL (4.0-11.0)
[2020-01-14 10:29] LABS: CALCIUM 9.7 mg/dL (8.5-10.1); CREATININE 3.1 mg/dL (0.6-1.0); GFR 18.2; POTASSIUM 4.2 mmol/L (3.5-5.1)
[2020-01-14] MEDS ORDERED: INSULIN LISPRO 100 UNIT/ML 3ML VIAL for OP,RR ONLY. SQ ONE (10:30)
[2020-01-14] MEDS ORDERED: IV NORMAL SALINE 1000ML BAG 1,000 ML IV SCH (10:30)
[2020-01-14] MEDS ORDERED: INSULIN LISPRO 100 UNIT/ML 3ML VIAL for OP,RR ONLY. SQ PRN (10:30)
[2020-01-14] MEDS ORDERED: LIDOCAINE 1% Multi-Dose 20 ML VIAL. ONE (11:13)
[2020-01-14] MEDS ORDERED: POVIDONE-IODINE 10% TOPICAL OINTMENT 28GM TUBE. TP ONE (11:13)
[2020-01-14] MEDS ORDERED: PROTAMINE 50 MG/5 ML VIAL. IV ONE (11:14)
[2020-01-14] MEDS ORDERED: SURGICEL FIBRILLAR 1X2 EACH. ONE (11:14)
[2020-01-14] MEDS ORDERED: PAPAVERINE 60 MG/2 ML VIAL. ONE (11:14)
[2020-01-14] MEDS ORDERED: THROMBIN TOPICAL 5,000 UNIT VIAL. ONE (11:14)
[2020-01-14] MEDS ORDERED: ceFAZolin 2GM PREMIX 2 GM/50 ML BAG IV ONE (12:00)
[2020-01-14] MEDS ORDERED: ceFAZolin SODIUM IV Push 1 GM VIAL. IVP ONE (12:04)
[2020-01-14] MEDS ORDERED: ONDANSETRON PF 4 MG/2 ML VIAL. ONE (12:16)
[2020-01-14] MEDS ORDERED: DEXAMETHASONE SOD PHOS 4 MG/ML VIAL ONE (12:16)
[2020-01-14] MEDS ORDERED: SEVOFLURANE 31 TO 60 MINUTES. IH ONE (12:31)
[2020-01-14] MEDS ORDERED: ePHEDrine PF IN SALINE 50 MG/10 ML SYRINGE. IV ONE (12:32)
--- NOTE | 2020-01-14 13:11 | DISCH ---
DISCHARGE INSTRUCTIONS Condition on Discharge Condition on Discharge: Stable Activity After Discharge Activity Instructions for Disc: Activity as tolerated Other activity instructions: elevate left arm on pillows as needed for swelling Lifting Instructions after Dis: No heavy lifting Exercise Instruction after Dis: Progress as tolerated Diet after Discharge Diet after Discharge: Renal Non-Dialysis, Diabetic No Calorie Level Diet Texture: Regular Swallowing Supervision: None needed Wound Incision Care Other wound/incision instructi: may remove dressing in 2 days, start hand/ball exercises when tolerated Contacting the DRKieran after DC Call your doctor for: Concerns you may have Follow-Up Follow up with: Dr. Flores [phone] Treatment/Equipment after DC Adaptive Equipment Issued: YONIS Peck APRN Jan 14, 2020 13:11
[2020-01-14] MEDS ORDERED: HYDR-3164 PO (13:23)
[2020-01-14] MEDS ORDERED: HYDROcodone/APAP 5/325MG 1 TAB TABLET PO PRN (13:30)
--- NOTE | 2020-01-14 13:32 | OP ---
DATE OF SURGERY: 01/14/2020 PREOPERATIVE DIAGNOSIS: End-stage renal disease, stage 4, ultimately requiring hemodialysis. POSTOPERATIVE DIAGNOSIS: End-stage renal disease, stage 4, ultimately requiring hemodialysis. OPERATION PERFORMED: Left brachiocephalic AV fistula creation. SURGEON: Amada Soto MD ARMATURE VARNISHER: Wanda Mosher, nurse practitioner. ANESTHESIA: General anesthetic. INDICATIONS: This is a 64-year-old female who has stage 4 chronic renal insufficiency. She underwent preoperative vein mapping, which revealed a satisfactory cephalic vein in the upper arm. She had no evidence of arterial occlusive disease with normal wrist brachial index. The operation, risks, and benefits were explained. OPERATIVE FINDINGS: The patient had a suitable cubital vein and brachial artery for the construction of the arteriovenous anastomosis. Following the procedure, the patient had excellent nonpulsatile palpable thrill over the outflow cephalic vein. DESCRIPTION OF PROCEDURE: The patient was placed in the supine position with the left arm abducted 90 degrees. A timeout was called and the correct patient, correct operation and correct operative site were all verified. The arm was then prepped and draped circumferentially. The patient received 3 grams of IV antibiotics due to her weight. An incision was then made transversely just below the elbow crease. The cubital vein was dissected circumferentially and branches were divided between 4-0 silk ligatures. The brachial artery was then exposed by dividing the aponeurosis. The artery was quite deep. The ulnar and radial branches were individually dissected and encircled with vessel loops as was the more proximal brachial artery. The patient was then given 3000 units of heparin and after 3 minutes circulation, a longitudinal arteriotomy was made in the brachial artery and the vein was then spatulated dilated up to 3 mm and then sutured end-to-side using 7-0 Prolene. Loupe magnification was utilized. Prior to completing the anastomosis, the vessels were flushed appropriately. Flow was then restored first into the vein and then distally. No protamine was given and wounds were irrigated. Closed in layers with absorbable suture, the skin with 4-0 nylon. Again, the patient had a palpable thrill over the cephalic vein and a palpable radial pulse. ESTIMATED BLOOD LOSS: Less than 5 mL. SPECIMENS: None. DRAINS: None. AMADA SOTO MD DR: ASHLEY/azeb JOB#: [id number] / [id number]
[2020-01-14 13:40] VITALS: BP 156/82
== END 2020-01-14 14:30 | disposition home or self-care (01) ==
LOC: SURG 09:38
PROVIDERS: ATTEND Surgery
DX: Z45.2 Encounter for adjustment and management of vascular access device (principal); E11.22 Type 2 diabetes mellitus with diabetic chronic kidney disease; N18.4 Chronic kidney disease, stage 4 (severe); Z99.2 Dependence on renal dialysis; Z79.82 Long term (current) use of aspirin; Z79.899 Other long term (current) drug therapy
CPT/HCPCS: 36415; 36821; 80048; 82962; 85025; A7015; J0690; J1100; J1644; J1815; J2405; J2704; J3010; J3490; J7040; J2440; J2720

== ENCOUNTER 2020-01-14 17:02 | Emergency (ER) | payer MEDICARE, MEDICAID ==
[~2020-01-14] VITALS: Ht 170.2 cm; Wt 127.2 kg
[~2020-01-14 17:02] MED LIST changes: -HEPARIN SODIUM 5,000 UNIT in IV NORMAL SALINE 500ML BAG 500 ML IRR ONE; +HYDR-3164 PO; -HYDROmorphone 2 MG/ML VIAL IV PRN; -IV RINGERS,LACTATED 1000ML 1,000 ML IV SCH; -LIDOCAINE 1% PF 2 ML VIAL. ID PRN; -MORPHINE SULFATE 2 MG/ML VIAL. IV PRN; -ONDANSETRON PF 4 MG/2 ML VIAL. IV PRN; -PROCHLORPERAZINE 10 MG/2 ML VIAL. IV PRN; -fentaNYL PF VIAL 100 MCG/2 ML VIAL IV PRN
--- NOTE | 2020-01-14 17:35 | PHYS DOC ---
Past Medical History Past Medical History: Diabetes-Type II Past Surgical History: Hysterectomy Smoking Status: Never Smoker Alcohol Use: None Drug Use: None General Adult EDM: Chief Complaint: DIALYSIS PROBLEM HPI: HPI: Patient is a 64 year old JUST HAD Left brachiocephalic AV fistula creation TODAY AT 3 PM. She was discharged home, when she got home, she noted the gauze soaked with bright red blood so she came back here for evaluation. Review of Systems: Review of Systems: Constitutional: Denies fever or chills. [] Eyes: Denies change in visual acuity. [] HENT: Denies nasal congestion or sore throat. [] Respiratory: Denies cough or shortness of breath. [] Cardiovascular: Denies chest pain or edema. [] GI: Denies abdominal pain, nausea, vomiting, bloody stools or diarrhea. [] : Denies dysuria. [] Musculoskeletal: Denies back pain or joint pain. [] Integument: Denies rash. [] Neurologic: Denies headache, focal weakness or sensory changes. [] Endocrine: Denies polyuria or polydipsia. [] Lymphatic: Denies swollen glands. [] Psychiatric: Denies depression or anxiety. [] Heart Score: Risk Factors: Risk Factors: DM, Current or recent (<one month) smoker, HTN, HLP, family history of CAD, obesity. Risk Scores: Score 0 - 3: 2.5% MACE over next 6 weeks - Discharge Home Score 4 - 6: 20.3% MACE over next 6 weeks - Admit for Clinical Observation Score 7 - 10: 72.7% MACE over next 6 weeks - Early Invasive Strategies Allergies: Allergies: Allergies Coded Allergies Type Severity Reaction Last Updated Verified No Known Drug Allergies 01/13/20 No Physical Exam: PE: Constitutional: Well developed, well nourished, no acute distress, non-toxic appearance. [] HENT: Normocephalic, atraumatic, bilateral external ears normal, oropharynx moist, no oral exudates, nose normal. [] Eyes: PERRLA, EOMI, conjunctiva normal, no discharge. [] Neck: Normal range of motion, no tenderness, supple, no stridor. [] Cardiovascular:Heart rate regular rhythm, no murmur [] Lungs & Thorax: Bilateral breath sounds clear to auscultation [] Abdomen: Bowel sounds normal, soft, no tenderness, no masses, no pulsatile masses. [] Skin: LEFT ARM WITH FRESH WOUND WITH SUTURES IN PLACE, NO ACTIVE BLEEDING....GOOD LEFT RADIAL PULSE. Back: No tenderness, no CVA tenderness. [] Extremities: No tenderness, no cyanosis, no clubbing, ROM intact, no edema. [] Neurologic: Alert and oriented X 3, normal motor function, normal sensory function, no focal deficits noted. [] Psychologic: Affect normal, judgement normal, mood normal. [] EKG: EKG: [] Radiology/Procedures: Radiology/Procedures: [] Course & Med Decision Making: Course & Med Decision Making Pertinent Labs and Imaging studies reviewed. (See chart for details) Patient's wound was not bleeding....it was rewrapped with gauze. Discussed with Dr. Carrera, vascular surgeon , hat cone inspector, recommended to discharge patient home SINCE bleeding stopped. Dragon Disclaimer: Dragon Disclaimer: This electronic medical record was generated, in whole or in part, using a voice recognition dictation system. Departure Departure Impression: Primary Impression: Hemorrhage of surgically-created arteriovenous fistula Disposition: HOME, SELF-CARE Condition: IMPROVED Referrals: TIFFANIE BERUMEN MD (PCP) AMADA SOTO II, MD PLEASE CALL YOUR VASCULAR SURGEON FOR FOLLOW UP THIS WEEK. Patient Instructions: AV Fistula, Care After Additional Instructions: Thank you for visiting our Emergency Department. We appreciate you trusting us with your care. If any additional problems come up don't hesitate to return to visit us. Please follow up with your primary care provider so they can plan additional care if needed and know about the problem that you had. If symptoms worsen come back to the Emergency Department. Any concerning symptoms that start such as chest pain, shortness of air, weakness or numbness on one side of the body, running high fevers or any other concerning symptoms return to the ER. Justicifation of Admission Dx: Justifications for Admission: Justification of Admission Dx: N/A JESSE GANNON DO Jan 14, 2020 17:35
[2020-01-14 18:18] VITALS: BP 137/70
== END 2020-01-14 18:26 | disposition home or self-care (01) ==
LOC: ER 17:02
DX: T82.838A Hemorrhage due to vascular prosthetic devices, implants and grafts, initial encounter (principal); E11.9 Type 2 diabetes mellitus without complications; Z90.710 Acquired absence of both cervix and uterus
CPT/HCPCS: 99284

== ENCOUNTER → 2020-04-15 | Outpatient (CLI) | payer MEDICARE, MEDICAID ==
[~2020-04-15] MED LIST changes: +AMLO-186 PO; +AMLO-187 PO; -AMLO10TA8 PO; -AMLO5TAB10 PO
--- NOTE | 2020-04-16 09:28 | RAD ---
EXAM: DATE: 04/15/2020 EXAM: DIGITAL SCREEN BILAT W/CAD HISTORY: Screening COMPARISON: 10/15/2017, 08/23/2015, 04/20/2014 This study was interpreted with the benefit of Computerized Aided Detection (CAD). Breast Density: SCATTERED The breast parenchyma shows scattered fibroglandular densities. Breast parenchyma level B. FINDINGS: Multiple bilateral benign-appearing masses are unchanged. There are no suspicious masses, suspicious calcification, or architectural distortion. IMPRESSION: No evidence of malignancy. BI-RADS CATEGORY: 2 BENIGN FINDING(S) RECOMMENDED FOLLOW-UP: 12M 12 MONTH FOLLOW-UP PQRS compliance statement: Patient information was entered into a reminder system with a target due date for the next mammogram. Mammography is a sensitive method for finding small breast cancers, but it does not detect them all and is not a substitute for careful clinical examination. A negative mammogram does not negate a clinically suspicious finding and should not result in delay in biopsying a clinically suspicious abnormality. "Our facility is accredited by the [employer] Mammography Program."
== END ==
LOC: MAMMO 14:18
PROVIDERS: ATTEND Nurse Practitioner Gerontology
DX: Z12.31 Encounter for screening mammogram for malignant neoplasm of breast (principal)
CPT/HCPCS: 77067